=== PATIENT | female | born 1945 | race Caucasian/White ===

== ENCOUNTER 2016-03-26 03:01 | Inpatient (IN) | payer MEDICARE, OTHER ==
[2016-03-26] VITALS (7 sets, daily range): BP systolic 111–140; BP diastolic 33–61
[~2016-03-26] VITALS: Ht 165.1 cm; Wt 149.3 kg
[~2016-03-26 03:01] MED LIST: ALLO300T PO; AMIO200T2 PO; APIX5TAB PO; ASPI-482 PO; ASPI81TA9 PO; CARV12.52 PO; CARV25TA PO; FERR-26 PO; FURO80TA72 PO; GLIP5TAB10 PO; HYDR-2869 PO; INSU300I SQ; ISOS30TA4 PO; LEVO75TA5 PO; METO2.5T PO; NYST30PO9 TP; POTA10CA PO; SIMV10TA3 PO; SITA50TA PO; WARF2TAB7 PO; WARF3TAB7 PO
[2016-03-26 03:40] LABS: BASO % 0 % (0-3); EOS % 0 % (0-3); HEMATOCRIT 36.9 % (36.0-47.0); HEMOGLOBIN 12.2 g/dL (12.0-15.5); LYMPH # 0.5 x10^3/uL (1.0-4.8); LYMPH % 5 % (24-48); MEAN CORPUSCULAR HEMOGLOBIN 32 pg (25-35); MEAN CORPUSCULAR HGB CONC 33 g/dL (31-37); MEAN CORPUSCULAR VOLUME 96 fL (79-100); MONO % 11 % (0-9); NEUT % 84 % (31-73); PLATELET COUNT 116 x10^3/uL (140-400); RED BLOOD COUNT 3.86 x10^6/uL (3.50-5.40); RED CELL DISTRIBUTION WIDTH 14.8 % (11.5-14.5); WHITE BLOOD COUNT 9.4 x10^3/uL (4.0-11.0)
[2016-03-26 03:51] LABS: INR 1.9 (0.8-1.1); PROTHROMBIN TIME PATIENT 20.6 SEC (11.7-14.0)
[2016-03-26 03:54] LABS: CALCIUM 9.8 mg/dL (8.5-10.1); CREATININE 3.3 mg/dL (0.6-1.0); GFR 13.8; POTASSIUM 3.2 mmol/L (3.5-5.1)
[2016-03-26] MEDS ORDERED: ACETAMINOPHEN 325 MG TABLET. PO PRN (04:00)
[2016-03-26] MEDS ORDERED: IV NORMAL SALINE 1000ML BAG 1,000 ML IV ONE (04:00)
[2016-03-26] MEDS ORDERED: ONDANSETRON PF 4 MG/2 ML VIAL. IV PRN (04:00)
--- NOTE | 2016-03-26 04:03 | PHYS DOC ---
Past Medical History Past Medical History: A-Fib, CHF, Diabetes-Type II, Hypertension, Hypothyroid, Other Additional Past Medical Histor: CHRONIC KIDNEY FAILURE Past Surgical History: Cholecystectomy, Tonsillectomy, Other Additional Past Surgical Histo: D&C Alcohol Use: None Drug Use: None Adult General Chief Complaint Chief Complaint: WEAKNESS/GENERALIZED HPI HPI 71-year-old female states that for the last several days she's become profoundly weak. She states she now is unable to get up out of her chair and walk across the room. She states it's not because she short of breath but because she just feels so weak. She states she's had decreased urine output over the last several days. She denies any fever chills or sweats. She denies any chest pain shortness of breath dyspnea on exertion. She states she has had a urinary tract infection with Escherichia coli. [] Review of Systems Review of Systems Constitutional: Denies fever or chills [] Eyes: Denies change in visual acuity, redness, or eye pain [] HENT: Denies nasal congestion or sore throat [] Respiratory: Denies cough or shortness of breath [] Cardiovascular: No additional information not addressed in HPI [] GI: Denies abdominal pain, nausea, vomiting, bloody stools or diarrhea [] : Denies dysuria or hematuria [] Musculoskeletal: Denies back pain or joint pain [] Integument: Denies rash or skin lesions [] Neurologic: Denies headache, focal weakness or sensory changes [] Endocrine: Denies polyuria or polydipsia [] Current Medications Current Medications Current Medications Medications (Trade) Dose Ordered Sig/Dejon Start Time Stop Time Status Last Admin Dose Admin Acetaminophen (Tylenol) 650 mg PRN Q4HRS PRN 03/26/16 04:00 03/27/16 03:59 Levofloxacin/ Dextrose (LEVAQUIN 500mg PREMIX) 100 ml @ 100 mls/hr 1X ONCE 03/26/16 04:00 03/26/16 04:59 Ondansetron HCl 4 mg 4 mg PRN Q8HRS PRN 03/26/16 04:00 03/27/16 03:59 Sodium Chloride (Iv Sodium Chloride 0.9% 1000ml Bag) 1,000 ml @ 150 mls/hr Q6H40M 03/26/16 04:00 03/27/16 03:59 Allergies Allergies Allergies Coded Allergies Type Severity Reaction Last Updated Verified Penicillins Allergy Intermediate 02/06/16 Yes cephalexin Allergy Intermediate 02/06/16 Yes erythromycin base Allergy Intermediate Shortness of Air 02/09/16 Yes Physical Exam Physical Exam Constitutional: Disheveled, malodorous, dehydrated. [] HENT: Normocephalic, atraumatic, bilateral external ears normal, oropharynx moist, no oral exudates, nose normal. [] Eyes: PERRLA, EOMI, conjunctiva normal, no discharge. [] Neck: Normal range of motion, no tenderness, supple, no stridor. [] Cardiovascular:Heart rate regular rhythm, no murmur [] Lungs & Thorax: Bilateral breath sounds clear to auscultation [] Abdomen: Bowel sounds normal, soft, no tenderness, no masses, no pulsatile masses. [] Skin: Warm, dry, no erythema, no rash. [] Back: No tenderness, no CVA tenderness. [] Extremities: No tenderness, no cyanosis, no clubbing, ROM intact, no edema. [] Neurologic: Alert and oriented X 3, normal motor function, normal sensory function, no focal deficits noted. [] Psychologic: Affect normal, judgement normal, mood normal. [] Current Patient Data Vital Signs Vital Signs Date Time Temp Pulse Resp B/P Pulse Ox O2 Delivery O2 Flow Rate FiO2 03/26/16 03:07 100.8 78 23 132/63 93 Nasal Cannula 2 100.8 Lab Values Laboratory Tests Test 03/26/16 03:10 White Blood Count 9.4x10^3/uL (4.0-11.0) Red Blood Count 3.86x10^6/uL (3.50-5.40) Hemoglobin 12.2g/dL (12.0-15.5) Hematocrit 36.9% (36.0-47.0) Mean Corpuscular Volume 96fL (79-100) Mean Corpuscular Hemoglobin 32pg (25-35) Mean Corpuscular Hemoglobin Concent 33g/dL (31-37) Red Cell Distribution Width 14.8% (11.5-14.5) H Platelet Count 116x10^3/uL (140-400) L Neutrophils (%) (Auto) 84% (31-73) H Lymphocytes (%) (Auto) 5% (24-48) L Monocytes (%) (Auto) 11% (0-9) H Eosinophils (%) (Auto) 0% (0-3) Basophils (%) (Auto) 0% (0-3) Neutrophils # (Auto) 7.9x10^3uL (1.8-7.7) H Lymphocytes # (Auto) 0.5x10^3/uL (1.0-4.8) L Monocytes # (Auto) 1.0x10^3/uL (0.0-1.1) Eosinophils # (Auto) 0.0x10^3/uL (0.0-0.7) Basophils # (Auto) 0.0x10^3/uL (0.0-0.2) Platelet Estimate Pending Prothrombin Time 20.6SEC (11.7-14.0) H Prothrombin Time INR 1.9 (0.8-1.1) H Sodium Level 134mmol/L (136-145) L Potassium Level 3.2mmol/L (3.5-5.1) L Chloride Level 94mmol/L (98-107) L Carbon Dioxide Level 29mmol/L (21-32) Anion Gap 11 (6-14) Blood Urea Nitrogen 77mg/dL (7-20) H Creatinine 3.3mg/dL (0.6-1.0) H Estimated GFR (Cockcroft-Gault) 13.8 BUN/Creatinine Ratio 23 (6-20) H Glucose Level 288mg/dL (70-99) H Lactic Acid Level 1.3mmol/L (0.4-2.0) Calcium Level 9.8mg/dL (8.5-10.1) Total Bilirubin 0.9mg/dL (0.2-1.0) Aspartate Amino Transferase (AST) 45U/L (15-37) H Alanine Aminotransferase (ALT) 37U/L (14-59) Alkaline Phosphatase 133U/L (46-116) H Troponin I Quantitative 0.020ng/mL (0.000-0.055) CI-Awr-T-Type Natriuretic Peptide 1763pg/mL (0-124) H Total Protein 7.3g/dL (6.4-8.2) Albumin 3.0g/dL (3.4-5.0) L Albumin/Globulin Ratio 0.7 (1.0-1.7) L Laboratory Tests 03/26/16 03:10 Laboratory Tests 03/26/16 03:10 EKG EKG [EKG: Left bundle branch block rate of 76 no change from previous. Radiology/Procedures Radiology/Procedures [] Impressions: Chest x-ray: Negative exam as interpreted by me Course & Med Decision Making Course & Med Decision Making Pertinent Labs and Imaging studies reviewed. (See chart for details) [] Dragon Disclaimer Dragon Disclaimer This electronic medical record was generated, in whole or in part, using a voice recognition dictation system. Departure Departure Impression: Primary Impression: Urinary tract infection Additional Impressions: Renal failure (ARF), acute on chronic Generalized weakness Disposition: ADMITTED INPATIENT Admitting Physician: Vincenzo Lagos Condition: GUARDED Referrals: GREGORY HARMON (PCP) Problem Qualifiers Primary Impression: Urinary tract infection Urinary tract infection type: site unspecified Hematuria presence: without hematuria Qualified Code: N39.0 - Urinary tract infection, site not specified ANDREA RAYA DO Mar 26, 2016 04:03
[2016-03-26 04:08] LABS: ALBUMIN/GLOBULIN RATIO 0.7 (1.0-1.7); TOTAL BILIRUBIN 0.9 mg/dL (0.2-1.0); TOTAL PROTEIN 7.3 g/dL (6.4-8.2)
[2016-03-26] MEDS ORDERED: DEXTROSE 50% 25 GM / 50ML DISP.SYRIN. IV PRN ×2 (04:15→18:00)
[2016-03-26 04:32] LABS: BILIRUBIN,URINE NEGATIVE (NEG); GLUCOSE,URINE NEGATIVE (NEG); NITRITE,URINE POSITIVE (NEG); PH,URINE 5.5; PROTEIN,URINE 30 mg/dL (NEG-TRACE); UROBILINOGEN,URINE 0.2 mg/dL (0.2 mg/dL)
[2016-03-26] MEDS: IV NORMAL SALINE 1000ML BAG 1,000 ML IV SCH ×2 (04:34→10:40)
[2016-03-26 04:39] LABS: BACTERIA,URINE MANY /HPF (0-FEW); RBC,URINE TNTC /HPF (0-2); SQUAMOUS EPITHELIAL CELL,UR OCC /LPF; WBC,URINE 20-40 /HPF (0-4)
--- NOTE | 2016-03-26 06:20 | EKG ---
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
--- NOTE | 2016-03-26 07:08 | RAD ---
Portable chest, 03/26/2016: History: Shortness of breath Comparison is made to a study from 02/10/2016. The heart is at the upper limits of normal in size. The pulmonary vascularity is normal. No pulmonary infiltrates are seen. There is no evidence of pleural fluid. IMPRESSION: No acute cardiopulmonary abnormality is detected.
[2016-03-26 07:18] LABS: PLT ESTIMATE ADEQUATE (ADEQUATE)
[2016-03-26] MEDS: INSULIN ASPART 300 UNITS/3 ML INSULN.PEN SQ SCH ×3 (09:07→17:00)
--- NOTE | 2016-03-26 09:40 | PDOC2 ---
CARDIAC CONSULT DATE OF CONSULT Date of Consult DATE: 03/26/16 TIME: 09:26 REASON FOR CONSULT Reason for Consult: CHF REFERRING PHYSICIAN Referring Physician: Marlon SOURCE Source: Chart review, Patient HISTORY OF PRESENT ILLNESS HISTORY OF PRESENT ILLNESS This is a pleasant 71 yo female admitted mainly for complains of increasing weakness. She is known for recent pyelonephritis, CKD, and NSTEMI. She has been treated significantly with antibiotics and was recently off it over a week ago. This week she saw her PCP Shin and submitted a specimen which she said that she still have UTI. She has bee feeling weak, no fever or chills but she has been having left flank pain. She had some nausea and vomiting. Reports of decreased UOP. No symptoms of chest pain, SOA, palpitations. Denies any PND nor orthopnea symptoms. No significant peripheral edema. PAST MEDICAL HISTORY Past Medical History Cardiovascular: AFIB, CAD, CHF, HTN, Hyperlipidemia, Other (chronic lymphedema ; VSD) Pulmonary: Other (ERICKSON with CPAP) CENTRAL NERVOUS SYSTEM: Peripheral neuropathy GI: umbilical hernia, diverticulosis Heme/Onc: No pertinent hx Hepatobiliary: No pertinent hx Psych: Anxiety Musculoskeletal: low back pain, Osteoarthritis, morbid obesity, right leg cellulitis Rheumatologic: No pertinent hx Infectious disease: No pertinent hx ENT: No pertinent hx Renal/: Chronic renal insuff, UTI, pyelonephritis Endocrine: Diabetes (2), Hypothyroidism Dermatology: No pertinent hx PAST SURGICAL HISTORY Past Surgical History Appendectomy, Cholecystectomy, Tonsillectomy, Other ([id number]; D&C) FAMILY HISTORY Family History Coronary Artery Disease (father) SOCIAL HISTORY Social History Smoke: No ALCOHOL: none Lives: Alone Domestic Violence: Neg CURRENT MEDICATIONS CURRENT MEDICATIONS Current Medications Medications (Trade) Dose Ordered Sig/Dejon Route PRN Reason Start Time Stop Time Status Last Admin Dose Admin Sodium Chloride 1,000 ml @ 1,000 mls/hr 1X ONCE IV 03/26/16 04:00 03/26/16 04:59 DC 03/26/16 03:50 Levofloxacin/ Dextrose 100 ml @ 100 mls/hr 1X ONCE IV 03/26/16 04:00 03/26/16 04:59 DC 03/26/16 04:34 Sodium Chloride (Iv Sodium Chloride 0.9% 1000ml Bag) 1,000 ml @ 150 mls/hr Q6H40M IV 03/26/16 04:00 03/27/16 03:59 03/26/16 04:34 Insulin Aspart (Novolog) 0-7 UNITS TIDWMEALS SQ 03/26/16 08:00 03/26/16 09:07 ALLERGIES ALLERGIES: Coded Allergies: Penicillins (Verified Allergy, Intermediate, 02/06/16) cephalexin (Verified Allergy, Intermediate, 02/06/16) erythromycin base (Verified Allergy, Intermediate, Shortness of Air, 02/08) ROS Review of System 14 point ROS evaluated with pertinent positives noted per HPI PHYSICAL EXAM General: Alert, Oriented X3, Cooperative, No acute distress HEENT: Atraumatic, Mucous membr. moist/pink Lungs: Other (faint basilar crackles) Heart: Regular rate (SR LBBB), Normal S1, Normal S2, Other (S4; distant heart sounds due to body habitus; 2/6 sytolic murmur to LLS border) Abdomen: Soft, No tenderness Extremities: No cyanosis, Other (2+ bilateral pedal edema) Skin: No breakdown, No significant lesion Neuro: Normal speech, Sensation intact Psych/Mental Status: Mental status NL, Mood NL MUSCULOSKELETAL: Osteoarthritic changes both hands VITALS VITALS Vital Signs Date Time Temp Pulse Resp B/P Pulse Ox O2 Delivery O2 Flow Rate FiO2 03/26/16 07:00 99.1 65 20 112/37 94 Nasal Cannula 2.0 99.1 LABS Lab: Laboratory Tests Test 03/26/16 03:10 03/26/16 04:25 03/26/16 06:18 03/26/16 08:56 White Blood Count 9.4x10^3/uL (4.0-11.0) Red Blood Count 3.86x10^6/uL (3.50-5.40) Hemoglobin 12.2g/dL (12.0-15.5) Hematocrit 36.9% (36.0-47.0) Mean Corpuscular Volume 96fL (79-100) Mean Corpuscular Hemoglobin 32pg (25-35) Mean Corpuscular Hemoglobin Concent 33g/dL (31-37) Red Cell Distribution Width 14.8% (11.5-14.5) Platelet Count 116x10^3/uL (140-400) Neutrophils (%) (Auto) 84% (31-73) Lymphocytes (%) (Auto) 5% (24-48) Monocytes (%) (Auto) 11% (0-9) Eosinophils (%) (Auto) 0% (0-3) Basophils (%) (Auto) 0% (0-3) Neutrophils # (Auto) 7.9x10^3uL (1.8-7.7) Lymphocytes # (Auto) 0.5x10^3/uL (1.0-4.8) Monocytes # (Auto) 1.0x10^3/uL (0.0-1.1) Eosinophils # (Auto) 0.0x10^3/uL (0.0-0.7) Basophils # (Auto) 0.0x10^3/uL (0.0-0.2) Segmented Neutrophils % 82% (35-66) Band Neutrophils % 10% (0-9) Lymphocytes % 5% (24-48) Monocytes % 3% (0-10) Platelet Estimate Adequate (ADEQUATE) Prothrombin Time 20.6SEC (11.7-14.0) Prothromb Time International Ratio 1.9 (0.8-1.1) Sodium Level 134mmol/L (136-145) Potassium Level 3.2mmol/L (3.5-5.1) Chloride Level 94mmol/L (98-107) Carbon Dioxide Level 29mmol/L (21-32) Anion Gap 11 (6-14) Blood Urea Nitrogen 77mg/dL (7-20) Creatinine 3.3mg/dL (0.6-1.0) Estimated GFR (Cockcroft-Gault) 13.8 BUN/Creatinine Ratio 23 (6-20) Glucose Level 288mg/dL (70-99) Lactic Acid Level 1.3mmol/L (0.4-2.0) 1.0mmol/L (0.4-2.0) Calcium Level 9.8mg/dL (8.5-10.1) Total Bilirubin 0.9mg/dL (0.2-1.0) Aspartate Amino Transf (AST/SGOT) 45U/L (15-37) Alanine Aminotransferase (ALT/SGPT) 37U/L (14-59) Alkaline Phosphatase 133U/L (46-116) Troponin I Quantitative 0.020ng/mL (0.000-0.055) OT-Ble-S-Type Natriuretic Peptide 1763pg/mL (0-124) Total Protein 7.3g/dL (6.4-8.2) Albumin 3.0g/dL (3.4-5.0) Albumin/Globulin Ratio 0.7 (1.0-1.7) Urine Collection Type Unknown Urine Color Yellow Urine Clarity Turbid Urine pH 5.5 Urine Specific [place] 1.010 Urine Protein 30mg/dL (NEG-TRACE) Urine Glucose (UA) Negativemg/dL (NEG) Urine Ketones (Stick) Negativemg/dL (NEG) Urine Blood Large (NEG) Urine Nitrite Positive (NEG) Urine Bilirubin Negative (NEG) Urine Urobilinogen Dipstick 0.2mg/dL (0.2 mg/dL) Urine Leukocyte Esterase Moderate (NEG) Urine RBC Tntc/HPF (0-2) Urine WBC 20-40/HPF (0-4) Urine Squamous Epithelial Cells Occ/LPF Urine Amorphous Sediment Present/HPF Urine Bacteria Many/HPF (0-FEW) Glucose (Fingerstick) 276mg/dL (70-99) ECHOCARDIOGRAM ECHOCARDIOGRAM <Conclusion> The Left Ventricle is mildly dilated. Left ventricle ejection fraction is severely impaired. The Ejection Fraction is <20%. There is no significant aortic valvular stenosis. Doppler and Color Flow revealed no significant aortic regurgitation. Doppler and Color Flow revealed mild mitral regurgitation. Doppler and Color Flow revealed mild tricuspid regurgitation. The PA pressure was estimated at 40 mmHg. DATE: 02/05/16 1820 STRESS TEST STRESS TEST Conclusion 1. Non diagnostic EKG due to baseline LBBB 2. Fixed apical/inferior defect, likely artifact versus small prior infarct. No ischemia 3. Low risk study 4. Normal EF at > 60% DATE: 03/11/16 1349 ASSESSMENT/PLAN ASSESSMENT/PLAN 1. Persistent UTI: likely inducing weakness. Recent Pyelonephritis. Per PCP 2. 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 IVF ongoing. Nephrology following 3. Chronic diastolic/ systolic CHF: No vascular congestion, borderline pro NT BNP at 1700 age adjusted. Clinically compensated. Replace K. 4. Hx of NSTEMI: unable to proceed with LHC at that time with renal function significantly decreased and MPI performed instead as an outpt noted with good EF and fixed apical/inferior defect with prior infarct. No reversible defects were noted. 5. PAFIB: Remains SR, no significant ectopies overnight. 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 Continue with amiodarone and eliquis. 6. Cardiomyopathy: Combined ischemic/nonischemic. Lowest EF in the past at <20% on 02/05/2016. MPI on 03/11/2016 noted with EF>60%. Lifevest was in place for SCD prevention and remains on it prior to hospitalization and has been compliant. Per device use review, limited data, suspect 2 possibilities, failed download or device may not be on. no noted rhythm abnormalities otherwise for registered data. Will verify EF with TTE today and if remains significantly improved then will consider discontinuation of lifevest. Continue with optimization. Defer start of lasix to nephrology. 7. CAD: [facility] 09/19/2007 noted with VSD, mod LV dysfunction with EF of 40%, mild to mod diffuse LV hypokinesis and with nonobstructive minimal CAD at [facility]. CP free. Continue with secondary prevention. 8. HTN: controlled, continue with home regimen 9. HLP: statin 10. DM2: Consider changing home januvia to tradjenta. Defer to PCP Problems: NICHOLAS RICHARDS APRN Mar 26, 2016 09:40
[2016-03-26] MEDS ORDERED: POTASSIUM CHLORIDE 20 MEQ TABLET.ER. PO ONE (09:45)
--- NOTE | 2016-03-26 10:25 | ACF ---
Admission Forms Criteria URINARY COMPLICATIONS Clinical Indications for Inpatient Care (Place 'X' for any and all applicable criteria): Ongoing inpatient care may be indicated for urinary complications with ANY ONE of the following: [X]I. Urinary tract infection requiring inpatient care as indicated by ANY ONE of the following(8)(19)(20): [ ]a) Severe symptoms (eg, high fever, severe pain) [ ]b) Vomiting or dehydration requiring ongoing inpatient care [X]c) IV antibiotic needs that cannot be managed at lower level of care [ ]d) Hemodynamic instability [ ]e) Obstruction of collecting system by stone or tumor [ ]II. Urinary retention requiring drainage or surgery (3)(4)(5)(17)(18) [ ]III. Renal failure (Use Renal Failure Criteria for further information.) [ ]IV. Oliguria(30) [ ]V. Post obstructive diuresis requiring close monitoring of urine output and intravenous compensation for excessive fluid losses(33) Extended stay beyond goal length of stay for primary condition may be needed until ALL of the following are present(3)(4)(5)(8): [ ]a) Renal function (creatinine) at baseline, or daily decreases in creatinine consistent with renal function return [ ]b) Voiding adequately or with urinary catheter or percutaneous suprapubic tube and management regimen in place that is performable at lower level of care. [ ]c) Urine output adequate [ ]d) Fever absent or resolving [ ]e) Infection absent or treatable at next level of care The original [employer] content created by [employer] has been revised. The portions of the content which have been revised are identified through the use of italic text or in bold, and [employer] has neither reviewed nor approved the modified material. All other unmodified content is copyright [facility] Please see references footnoted in the original [facility] edition 2016 Admission Criteria Met?: Yes MARIAH URBAN Mar 26, 2016 10:25
[2016-03-26] MEDS ORDERED: MAGNESIUM SULFATE 2GM 50 ML IV PRN (11:15)
--- NOTE | 2016-03-26 11:19 | PDOC2 ---
CONSULT Date of Consult Date of Consult DATE: 03/26/16 TIME: 11:12 Reason for Consult Reason for Consult: ZELDA/ CKD IV Referring Physician Referring Physician: Dr Lagos Identification/Chief Complaint Chief Complaint Weakness Problems: Source Source: Chart review, Patient History of Present Illness Reason for Visit: as dictated Past Medical History Cardiovascular: AFIB, CAD, CHF, HTN, Hyperlipidemia, Other Pulmonary: Other CENTRAL NERVOUS SYSTEM: Periperal neuropathy GI: No pertinent hx Heme/Onc: No pertinent hx Hepatobiliary: No pertinent hx Psych: Anxiety Musculoskeletal: low back pain Rheumatologic: No pertinent hx Infectious disease: No pertinent hx Renal/: Chronic renal insuff, UTI Endocrine: Diabetes, Hypothyroidism Past Surgical History Past Surgical History: Appendectomy, Cholecystectomy, Tonsillectomy, Other Family History Family History: Coronary Artery Disease Social History ALCOHOL: none Lives: Alone Domestic Violence: Neg Current Problem List Problem List Problems Medical Problems: (1) Generalized weakness Status: Acute (2) Renal failure (ARF), acute on chronic Status: Acute (3) Urinary tract infection Status: Acute Current Medications Current Medications Current Medications Sodium Chloride 1,000 ml @ 1,000 mls/hr 1X ONCE IV Last administered on 03:50; Start 03/26/16 at 04:00; Stop 03/26/16 at 04:59; Status DC Levofloxacin/ Dextrose (LEVAQUIN 500mg PREMIX) 100 ml @ 100 mls/hr 1X ONCE IV Last administered on 03/26/16 04:34; Start 03/26/16 at 04:00; Stop 03/26/16 at 04:59; Status DC Ondansetron HCl 4 mg 4 mg PRN Q8HRS PRN IV NAUSEA/VOMITING; Start 03/26/16 at 04 :00; Stop 03/27/16 at 03:59 Sodium Chloride (Iv Sodium Chloride 0.9% 1000ml Bag) 1,000 ml @ 150 mls/hr Q6H40M IV Last administered on 03/26/16 04:34; Start 03/26/16 at 04:00; Stop 03/27/16 at 03:59 Acetaminophen (Tylenol) 650 mg PRN Q4HRS PRN PO FEVER; Start 03/26/16 at 04:00; Stop 03/27/16 at 03:59 Insulin Aspart (Novolog) 0-7 UNITS TIDWMEALS SQ Last administered on 03/26/16t 09:07; Start 03/26/16 at 08:00 Dextrose 12.5 gm PRN Q15MIN PRN IV SEE COMMENTS; Start 03/26/16 at 04:15 Potassium Chloride (Klor-Con) 40 meq 1X ONCE PO ; Start 03/26/16 at 09:45; Stop 03/26/16 at 09:46; Status DC Active Scripts Active Carvedilol 12.5 Mg Tablet 12.5 Mg PO BIDWMEALS Eliquis (Apixaban) 5 Mg Tablet 5 Mg PO BID Reported Potassium Chloride 10 Meq Capsule.er 10 Meq PO DAILY Januvia (Sitagliptin Phosphate) 50 Mg Tablet 1 Tab PO DAILY Nystatin 15 Gm Powder 10,000 Flower TP BID Aspir 81 (Aspirin) 81 Mg Tablet.dr 1 Tab PO DAILY Glipizide 5 Mg Tablet 1 Tab PO BID Allopurinol 300 Mg Tablet 1 Tab PO DAILY Amiodarone Hcl 200 Mg Tablet 1 Tab PO DAILY Levothyroxine Sodium 75 Mcg Tablet 1 Tab PO DAILY Simvastatin 10 Mg Tablet 10 Mg PO DAILY Metolazone 2.5 Mg Tablet 2.5 Mg PO DAILY Isosorbide Mononitrate Er (Isosorbide Mononitrate) 30 Mg Tab.er.24h 50 Mg PO DAILY Ferrous Sulfate 325 Mg Tablet 1 Tab PO DAILY Hydralazine Hcl 50 Mg Tablet 1 Tab PO TID Lasix (Furosemide) 80 Mg Tablet 1 Tab PO DAILY Allergies Allergies: Coded Allergies: Penicillins (Verified Allergy, Intermediate, 02/06/16) cephalexin (Verified Allergy, Intermediate, 02/06/16) erythromycin base (Verified Allergy, Intermediate, Shortness of Air, 02/08) ROS Review of System GEN: + Fevers + Chills + Weakness EYES: no Visual Complaints ENT: nno EN Drainage no Hearing deficiets CVS: no Orthopnea no CP RESP: no SOB no ROCHA GI: + Nausea + Vomiting : 1 x Dysuria + Urgency HEME: no easy bruising no Palp Ly Nodes NEURO mp Focal Weakness mp Sz PSYCH: mp Suicidal Ideation + baseliene Depression SKIN: no new Rashes ENDO: no Polyuria or Polydipsia no Hot/Cold Intolerance MU SK: + Arthraigia no Myalgia Physical Exam Physical Exam General Appearance: Awake Alert Oriented x 3 In no Distress Eyes: VIsion Unchanged Conjunctiva Normal EN: No EN Drainage Mucous Memb. moist Neck: no JVD no JVP Supple no Thyromegaly; Short thick neck CVS: S1 S2 no audible Murmur No Gallop No Rub no pitting Edema (+ Pre-Tibial fat) - distal HS Resp: no Rales no Rhonchi no Acc. Muscle use; Distal BS GI: BAS +ve NO Bruit Non Tender Non Distended : min CVA tenderness; ? Suprapubic Tenderness SKIN: no Rashes Breast Exam deferred Mu.Sk: Adequate ROM no Muscle Atrophy Heme: Unable to palpate Obvious LAD no Splenomegaly NEURO: Good Strength and Tone Cranial Nerves II - XII grossly intact Psych: min Depressed no Active hallucination Vital Signs Vital Signs Date Time Temp Pulse Resp B/P Pulse Ox O2 Delivery O2 Flow Rate FiO2 03/26/16 10:52 98.8 60 20 119/55 95 Nasal Cannula 2.0 98.8 Assessment & Plan ARF: (? ATN/ AIN/ Pyelonephritis) vs VMN due to diuretics - watch for improvement with IVF. Current FLuid and E-lyte status does not necessitate emergent need for Dialysis. Will re-evaluate for Dialysis in am CKD IV at baseline - Creat of ~ 2.5 on last check; Previous CT Scan in 01/2016 shows some atrophy of Kidneys and thinning. DESMOND cannot be ruled out Vol dpeeltioin - IVf for now ? UTI with Hematruia - await Cx from PCP and from here.- Abx per ER and Dr Lagos; No stones were noted to my eye on previous Ct (none reported) Recc Pyelo - may need URO eval as OP. HTN: Current BP meds reviewed. See orders for changes. HypoALbuminemia - wtach trend. suspec low A/G ratio due to ch infection. Low K - replace per sliding scale Discussed Plan of Care and prognosis etc. at length with pt Labs Labs Laboratory Tests Test 03/26/16 03:10 03/26/16 04:25 03/26/16 06:18 03/26/16 08:56 White Blood Count 9.4x10^3/uL (4.0-11.0) Red Blood Count 3.86x10^6/uL (3.50-5.40) Hemoglobin 12.2g/dL (12.0-15.5) Hematocrit 36.9% (36.0-47.0) Mean Corpuscular Volume 96fL (79-100) Mean Corpuscular Hemoglobin 32pg (25-35) Mean Corpuscular Hemoglobin Concent 33g/dL (31-37) Red Cell Distribution Width 14.8% (11.5-14.5) Platelet Count 116x10^3/uL (140-400) Neutrophils (%) (Auto) 84% (31-73) Lymphocytes (%) (Auto) 5% (24-48) Monocytes (%) (Auto) 11% (0-9) Eosinophils (%) (Auto) 0% (0-3) Basophils (%) (Auto) 0% (0-3) Neutrophils # (Auto) 7.9x10^3uL (1.8-7.7) Lymphocytes # (Auto) 0.5x10^3/uL (1.0-4.8) Monocytes # (Auto) 1.0x10^3/uL (0.0-1.1) Eosinophils # (Auto) 0.0x10^3/uL (0.0-0.7) Basophils # (Auto) 0.0x10^3/uL (0.0-0.2) Segmented Neutrophils % 82% (35-66) Band Neutrophils % 10% (0-9) Lymphocytes % 5% (24-48) Monocytes % 3% (0-10) Platelet Estimate Adequate (ADEQUATE) Prothrombin Time 20.6SEC (11.7-14.0) Prothromb Time International Ratio 1.9 (0.8-1.1) Sodium Level 134mmol/L (136-145) Potassium Level 3.2mmol/L (3.5-5.1) Chloride Level 94mmol/L (98-107) Carbon Dioxide Level 29mmol/L (21-32) Anion Gap 11 (6-14) Blood Urea Nitrogen 77mg/dL (7-20) Creatinine 3.3mg/dL (0.6-1.0) Estimated GFR (Cockcroft-Gault) 13.8 BUN/Creatinine Ratio 23 (6-20) Glucose Level 288mg/dL (70-99) Lactic Acid Level 1.3mmol/L (0.4-2.0) 1.0mmol/L (0.4-2.0) Calcium Level 9.8mg/dL (8.5-10.1) Magnesium Level 2.0mg/dL (1.8-2.4) Total Bilirubin 0.9mg/dL (0.2-1.0) Aspartate Amino Transf (AST/SGOT) 45U/L (15-37) Alanine Aminotransferase (ALT/SGPT) 37U/L (14-59) Alkaline Phosphatase 133U/L (46-116) Troponin I Quantitative 0.020ng/mL (0.000-0.055) PE-Uov-U-Type Natriuretic Peptide 1763pg/mL (0-124) Total Protein 7.3g/dL (6.4-8.2) Albumin 3.0g/dL (3.4-5.0) Albumin/Globulin Ratio 0.7 (1.0-1.7) Urine Collection Type Unknown Urine Color Yellow Urine Clarity Turbid Urine pH 5.5 Urine Specific Overton 1.010 Urine Protein 30mg/dL (NEG-TRACE) Urine Glucose (UA) Negativemg/dL (NEG) Urine Ketones (Stick) Negativemg/dL (NEG) Urine Blood Large (NEG) Urine Nitrite Positive (NEG) Urine Bilirubin Negative (NEG) Urine Urobilinogen Dipstick 0.2mg/dL (0.2 mg/dL) Urine Leukocyte Esterase Moderate (NEG) Urine RBC Tntc/HPF (0-2) Urine WBC 20-40/HPF (0-4) Urine Squamous Epithelial Cells Occ/LPF Urine Amorphous Sediment Present/HPF Urine Bacteria Many/HPF (0-FEW) Glucose (Fingerstick) 276mg/dL (70-99) Test 03/26/16 09:55 Troponin I Quantitative < 0.017ng/mL (0.000-0.055) Laboratory Tests Test 03/26/16 03:10 03/26/16 04:25 03/26/16 06:18 03/26/16 08:56 White Blood Count 9.4x10^3/uL (4.0-11.0) Red Blood Count 3.86x10^6/uL (3.50-5.40) Hemoglobin 12.2g/dL (12.0-15.5) Hematocrit 36.9% (36.0-47.0) Mean Corpuscular Volume 96fL (79-100) Mean Corpuscular Hemoglobin 32pg (25-35) Mean Corpuscular Hemoglobin Concent 33g/dL (31-37) Red Cell Distribution Width 14.8% (11.5-14.5) Platelet Count 116x10^3/uL (140-400) Neutrophils (%) (Auto) 84% (31-73) Lymphocytes (%) (Auto) 5% (24-48) Monocytes (%) (Auto) 11% (0-9) Eosinophils (%) (Auto) 0% (0-3) Basophils (%) (Auto) 0% (0-3) Neutrophils # (Auto) 7.9x10^3uL (1.8-7.7) Lymphocytes # (Auto) 0.5x10^3/uL (1.0-4.8) Monocytes # (Auto) 1.0x10^3/uL (0.0-1.1) Eosinophils # (Auto) 0.0x10^3/uL (0.0-0.7) Basophils # (Auto) 0.0x10^3/uL (0.0-0.2) Segmented Neutrophils % 82% (35-66) Band Neutrophils % 10% (0-9) Lymphocytes % 5% (24-48) Monocytes % 3% (0-10) Platelet Estimate Adequate (ADEQUATE) Prothrombin Time 20.6SEC (11.7-14.0) Prothromb Time International Ratio 1.9 (0.8-1.1) Sodium Level 134mmol/L (136-145) Potassium Level 3.2mmol/L (3.5-5.1) Chloride Level 94mmol/L (98-107) Carbon Dioxide Level 29mmol/L (21-32) Anion Gap 11 (6-14) Blood Urea Nitrogen 77mg/dL (7-20) Creatinine 3.3mg/dL (0.6-1.0) Estimated GFR (Cockcroft-Gault) 13.8 BUN/Creatinine Ratio 23 (6-20) Glucose Level 288mg/dL (70-99) Lactic Acid Level 1.3mmol/L (0.4-2.0) 1.0mmol/L (0.4-2.0) Calcium Level 9.8mg/dL (8.5-10.1) Magnesium Level 2.0mg/dL (1.8-2.4) Total Bilirubin 0.9mg/dL (0.2-1.0) Aspartate Amino Transf (AST/SGOT) 45U/L (15-37) Alanine Aminotransferase (ALT/SGPT) 37U/L (14-59) Alkaline Phosphatase 133U/L (46-116) Troponin I Quantitative 0.020ng/mL (0.000-0.055) PO-Ahl-K-Type Natriuretic Peptide 1763pg/mL (0-124) Total Protein 7.3g/dL (6.4-8.2) Albumin 3.0g/dL (3.4-5.0) Albumin/Globulin Ratio 0.7 (1.0-1.7) Urine Collection Type Unknown Urine Color Yellow Urine Clarity Turbid Urine pH 5.5 Urine Specific Overton 1.010 Urine Protein 30mg/dL (NEG-TRACE) Urine Glucose (UA) Negativemg/dL (NEG) Urine Ketones (Stick) Negativemg/dL (NEG) Urine Blood Large (NEG) Urine Nitrite Positive (NEG) Urine Bilirubin Negative (NEG) Urine Urobilinogen Dipstick 0.2mg/dL (0.2 mg/dL) Urine Leukocyte Esterase Moderate (NEG) Urine RBC Tntc/HPF (0-2) Urine WBC 20-40/HPF (0-4) Urine Squamous Epithelial Cells Occ/LPF Urine Amorphous Sediment Present/HPF Urine Bacteria Many/HPF (0-FEW) Glucose (Fingerstick) 276mg/dL (70-99) Test 03/26/16 09:55 Troponin I Quantitative < 0.017ng/mL (0.000-0.055) Images Images Portable chest, 03/26/2016: History: Shortness of breath Comparison is made to a study from 02/10/2016. The heart is at the upper limits of normal in size. The pulmonary vascularity is normal. No pulmonary infiltrates are seen. There is no evidence of pleural fluid. IMPRESSION: No acute cardiopulmonary abnormality is detected. KARAN BARAJAS MD Mar 26, 2016 11:19
[2016-03-26] MEDS ORDERED: HYDRALAZINE 25 MG TABLET PO SCH (14:00)
[2016-03-26] MEDS: ASPIRIN ENTERIC COATED 81 MG TABLET.DR. PO SCH (14:49)
[2016-03-26] MEDS: POTASSIUM CHLORIDE 20 MEQ TABLET.ER. PO PRN (14:49)
[2016-03-26] MEDS: APIXABAN 5 MG TABLET. PO SCH ×2 (14:49→20:45)
[2016-03-26] MEDS: ISOSORBIDE MONONITRATE ER 30 MG TAB.ER.24H PO SCH (14:50)
[2016-03-26] MEDS: AMIODARONE HCL 200 MG TABLET PO SCH (14:51)
[2016-03-26] MEDS ORDERED: METOLAZONE 2.5 MG TABLET PO SCH (15:00)
[2016-03-26] MEDS ORDERED: FUROSEMIDE 80 MG TABLET PO SCH (15:15)
[2016-03-26] MEDS ORDERED: CARVEDILOL 12.5 MG TABLET PO SCH (17:00)
[2016-03-26] MEDS: ALLOPURINOL 300 MG TABLET. PO SCH (17:06)
[2016-03-26] MEDS: FERROUS SULFATE 325 MG TABLET PO SCH (17:06)
[2016-03-26] MEDS: CARVEDILOL 12.5 MG TABLET PO SCH (17:07)
[2016-03-26] MEDS: GLIPIZIDE 5 MG TABLET PO SCH (17:07)
[2016-03-26] MEDS: POTASSIUM CHLORIDE 10 MEQ TABLET.ER. PO SCH (17:09)
--- NOTE | 2016-03-26 17:37 | CARD ---
APPROVED REPORT EXAM: Two-dimensional and M-mode echocardiogram with Doppler and color Doppler. Other Information Quality : GoodHR: 60bpm Rhythm : NSR INDICATION Cardiomyopathy RISK FACTORS Obesity 2D DIMENSIONS RVDd3.3 (2.9-3.5cm)Left Atrium(2D)3.8 (1.6-4.0cm) IVSd1.1 (0.7-1.1cm)Aortic Root(2D)2.9 (2.0-3.7cm) LVDd5.9 (3.9-5.9cm)LVOT Diameter2.4 (1.8-2.4cm) PWd1.0 (0.7-1.1cm)LVDs4.3 (2.5-4.0cm) FS (%) 28.0 %SV93.7 ml LVEF(%)53.4 (>50%) Aortic Valve AoV Peak Moody.172.2cm/sAoV VTI45.0cm AO Peak GR.11.9mmHgLVOT Peak Moody.97.8cm/s AO Mean GR.8mmHgAVA (VMAX)2.65cm2 Mitral Valve MV E Rcivxbcp95.3cm/sMV E Peak Gr.7mmHg MV DECEL [id number] A Blkhakbp121.2cm/s MV E Mean Gr.2mmHgE/A Ratio0.4 MV A [id number] Pulmonary Valve PV Peak Lwlrvdle233.6cm/s Pulmonary Vein S1 Kcgnkgqj64.7cm/sD2 Ruzdrolq67.1cm/s PVa [id number] LEFT VENTRICLE The Left Ventricle is mildly dilated. There is mild concentric left ventricular hypertrophy. The left ventricular systolic function is normal and the ejection fraction is within normal range. The Ejecti on Fraction is 50-55%. There is normal LV segmental wall motion. Transmitral Doppler flow pattern is Grade I-abnormal relaxation pattern. RIGHT VENTRICLE The right ventricle is normal size. There is normal right ventricular wall thickness. The right ventr icular systolic function is normal. ATRIA The left atrium is mildly dilated. The right atrium size is normal. The interatrial septum is intact with no evidence for an atrial septal defect or patent foramen ovale as noted on 2-D or Doppler imagi ng. AORTIC VALVE The aortic valve is mildly thickened. Doppler and Color Flow revealed no significant aortic regurgita tion. There is no significant aortic valvular stenosis. MITRAL VALVE There is no evidence of mitral valve prolapse. There is no mitral valve stenosis. Doppler and Color F low revealed mild mitral regurgitation. TRICUSPID VALVE The tricuspid valve is normal in structure and function. Doppler and Color Flow revealed no tricuspid valve regurgitation noted. PULMONIC VALVE Doppler and Color Flow revealed trace to mild pulmonic valvular regurgitation. There is no pulmonic v alvular stenosis. GREAT VESSELS The aortic root is normal in size. The ascending aorta is normal in size. The pulmonary artery is nor mal. The IVC is normal in size and collapses >50% with inspiration. PERICARDIAL EFFUSION There is no evidence of significant pericardial effusion. Critical Notification Critical Value: No <Conclusion> The left ventricular systolic function is normal and the ejection fraction is within normal range. The Ejection Fraction is 50-55%. There is mild concentric left ventricular hypertrophy. There is no significant aortic valvular stenosis. Doppler and Color Flow revealed no significant aortic regurgitation. Doppler and Color Flow revealed mild mitral regurgitation. Doppler and Color Flow revealed no tricuspid valve regurgitation noted. Doppler and Color Flow revealed trace to mild pulmonic valvular regurgitation.
[2016-03-26] MEDS: NYSTATIN TOPICAL POWDER 15GM BOTTLE. TP SCH ×2 (19:16→20:45)
[2016-03-26] MEDS: HYDRALAZINE 50 MG TABLET PO SCH (20:45)
[2016-03-26] MEDS: SIMVASTATIN 10 MG TABLET PO SCH (20:45)
[2016-03-26] MEDS ORDERED: APIXABAN 5 MG TABLET. PO SCH (21:00)
--- NOTE | 2016-03-26 23:14 | HP ---
ADMIT DATE: 03/26/2016 CHIEF COMPLAINT: Generalized weakness. HISTORY OF PRESENT ILLNESS: The patient is a 71-year-old woman who actually had been admitted just a month ago with UTI and ZELDA who presented to the Emergency Room for worsening generalized weakness. She was getting to a point where she was literally unable to get out of the chair and walk across the room. She denies any shortness of breath associated with this. Denies any fevers or chills, any chest pain, abdominal pain. She denies any dysuria or diarrhea. However, she has noted that she had decreased urine output over the past few days. In the Emergency Room, she was found with BUN and creatinine of 77 and 3.3 with her typical baseline being 2.5, as well as electrolyte derangements and elevated BNP at 1763. UA showed 20-40 wbc and bacteria. She was therefore admitted with recurrent UTI as well as ZELDA. PAST MEDICAL HISTORY: CKD for recurrent UTI, CAD, CHF (diastolic), atrial fibrillation, hypertension, peripheral neuropathy, chronic lymphedema, diabetes mellitus, hypothyroidism. PAST SURGICAL HISTORY: Cholecystectomy, appendectomy, tonsillectomy, history of D and C. FAMILY HISTORY: Positive for hypertension, CAD in father. SOCIAL HISTORY: Lives by herself. No toxic habits. ALLERGIES: PENICILLINS, CEPHALOSPORINS, ERYTHROMYCIN. MEDICATIONS: MAR reconciled with home medications. REVIEW OF SYSTEMS: Essentially positive as per HPI. Denies any other symptoms in rest of organ system review. PHYSICAL EXAMINATION: VITAL SIGNS: Show a blood pressure of 119/55, heart rate of 60, respiratory rate at 20. She is afebrile, satting 95% on 2 liters. GENERAL: This is a morbidly obese woman, alert and oriented, in no acute distress. HEENT: Shows no scleral icterus. NECK: Short and thick. LUNGS: Fairly clear bilaterally. CARDIOVASCULAR: Regular rate and rhythm. 5/6 VSD murmur. ABDOMEN: Obese, positive bowel sounds, organs could not be palpated. EXTREMITIES: Show 1+ edema bilateral lower extremities. SKIN: Warm, soft and dry without any rash. LABORATORY DATA: CBC from today shows a WBC of 9.4, hemoglobin 12.2, platelets of 116. Of note, prior admissions show platelet counts in the 120s to 130s range. Chemistries with a BUN and creatinine of 77 and 3.3, sodium 134, potassium 3.2, chloride at 94. LFTs with an AST of 45, alkaline phosphatase at 133, albumin at 3.0. ProBNP at 1753. Initial troponin at 0.02, repeated less than 0.017. Of note, glucoses at 288 and 246. Urine with 20-40 wbc, TNTC rbc, many bacteria, nitrite positive. IMAGING: Chest x-ray in the Emergency Room without acute cardiopulmonary abnormality seen. ASSESSMENT AND PLAN: The patient is a 71-year-old woman with multiple medical issues who presents once again with urinary tract infection and acute kidney injury. She recently had been treated for urinary tract infection with what cultures showed to be E. coli pansensitive. She had received trimethoprim sulfamethoxazole for 7 days, which she had completed just last week. We will admit her here. Start her on ceftriaxone. Culture is pending. Suspect this is the same infection once again. For her qazcw-dx-sqtqtpb kidney injury, I will gently rehydrate, monitoring electrolytes and creatinine. Renal consult has been obtained. BNP is somewhat elevated, but without any signs or symptoms of respiratory insufficiency, doubt that this is representing acute congestive heart failure exacerbation, more likely related to renal insufficiency. Hypokalemia and hyponatremia will be repeated IV and p.o. as indicated. We will continue to monitor. Her diabetes mellitus initially was poorly controlled. We will add insulin sliding scale to her home regimen. She currently has no symptoms of coronary artery disease or congestive heart failure. We will continue all her home medications as well. She is on apixaban for atrial fibrillation. Medication will be continued as well. There is no overt sign of bleeding at this time. JOSE MORELAND MD DR: KODY/sherri JOB#: [id number] / [id number] GREGORY Mayes MD
[2016-03-27] VITALS (7 sets, daily range): BP systolic 109–149; BP diastolic 46–74
[2016-03-27 06:32] LABS: ALBUMIN 2.3 g/dL (3.4-5.0); CREATININE 3.1 mg/dL (0.6-1.0); GFR 14.9; PHOSPHORUS 3.2 mg/dL (2.6-4.7); POTASSIUM 3.6 mmol/L (3.5-5.1)
[2016-03-27] MEDS: LEVOTHYROXINE 75 MCG TABLET PO SCH (06:39)
--- NOTE | 2016-03-27 06:43 | CONS ---
DATE OF CONSULTATION: 03/26/2016 HISTORY OF PRESENT ILLNESS: The patient is a morbidly obese 71-year-old female who was admitted here in January with possible pyelonephritis. She was discharged home and about a few days ago she had developed urgency, frequency and possible dysuria was treated with antibiotics. She had another culture done with her primary care physician recently and was again noted to have UTI, so Cipro was ordered. She went to flower buncher or picker the Cipro at the pharmacy, by the time she got home and climbed the stairs she was feeling too weak to do much. She was hence admitted to the hospital. She has had fevers, chills, nausea, vomiting, and some back pain. It appears that she has a recurrence of pyelonephritis. She is now on levofloxacin. Choice of antibiotics will be deferred to Dr. Lagos. Cultures from the patient's primary care physician are pending at this time. Baseline creatinine runs about 2.5. She is now noted to be up to 3.3 and hence has been diagnosed with acute renal failure. Sugars are slightly on the high side to radiate. I do not see any obvious emergent need for dialysis at this time of dictation. KARAN BARAJAS MD DR: ANGELI/sherri JOB#: [id number] / [id number]
[2016-03-27] MEDS: GLIPIZIDE 5 MG TABLET PO SCH ×2 (07:47→16:03)
[2016-03-27] MEDS: ASPIRIN ENTERIC COATED 81 MG TABLET.DR. PO SCH (07:48)
[2016-03-27] MEDS: LINAGLIPTIN 5 MG TABLET PO SCH ×2 (07:48→07:54)
[2016-03-27] MEDS: FERROUS SULFATE 325 MG TABLET PO SCH (07:48)
[2016-03-27] MEDS: POTASSIUM CHLORIDE 10 MEQ TABLET.ER. PO SCH (07:48)
[2016-03-27] MEDS: APIXABAN 5 MG TABLET. PO SCH ×2 (07:49→21:02)
[2016-03-27] MEDS: ALLOPURINOL 300 MG TABLET. PO SCH (07:49)
[2016-03-27] MEDS: ISOSORBIDE MONONITRATE ER 30 MG TAB.ER.24H PO SCH (07:51)
[2016-03-27] MEDS: HYDRALAZINE 50 MG TABLET PO SCH ×3 (07:52→21:03)
[2016-03-27] MEDS: AMIODARONE HCL 200 MG TABLET PO SCH (07:52)
[2016-03-27] MEDS: CARVEDILOL 12.5 MG TABLET PO SCH ×2 (07:53→16:03)
[2016-03-27] MEDS: NYSTATIN TOPICAL POWDER 15GM BOTTLE. TP SCH ×2 (07:54→21:03)
[2016-03-27] MEDS: INSULIN ASPART 300 UNITS/3 ML INSULN.PEN SQ SCH ×3 (08:00→16:57)
--- NOTE | 2016-03-27 08:54 | PDOC ---
PROGRESS NOTES Chief Complaint Chief Complaint Sepsis UTI ASSESSMENT AND PLAN: 1. Sepsis: febrile. Blood cult with [facility]. on Levaquin 2. UTI: awaiting cult and sens, but had E.coli infect a couple of weeks ago, rx.ed with bactrim at home. 3. ZELDA: improving with hydration 4. CKD3-4: creat at baseline about 2.5 5. Anemia: 2/2 CKD. on oral iron. no indication for EPO (yet) 5. Hyponatremia: resolved 6. Hypokalemia: resolved 7. DM: improved control. continue curernt regimen, monitor frrquently 8. CAD: no acute issues. cont home meds 9. CHF: chronic diastolic/systolic: (historical EF 20, but on03/11 EF 60). monitor fluid status 10: Afib: good rate control. cont current meds 11. OAC: on apixaban for atrial fibrillation. 12. Hypothyroidism: on synthroid 13. Protein malnutrition: moderate in face of massive obesity Vitals Vitals Vital Signs Date Time Temp Pulse Resp B/P Pulse Ox O2 Delivery O2 Flow Rate FiO2 03/27/16 07:53 58 149/54 03/27/16 07:45 97.0 18 97 Room Air 97.0 03/26/16 20:00 2.0 Physical Exam General: Alert, Oriented X3, Cooperative, No acute distress Heart: Regular rate, Other Lungs: Clear Abdomen: Normal bowel sounds, Soft, No tenderness, Other (massively obese) Extremities: No clubbing, No cyanosis, Other (2+ bilateral pedal edema) Skin: No significant lesion Labs LABS Laboratory Tests Test 03/26/16 08:56 03/26/16 09:55 03/26/16 12:02 03/26/16 15:50 Glucose (Fingerstick) 276mg/dL (70-99) 188mg/dL (70-99) Potassium Level 2.8mmol/L (3.5-5.1) Troponin I Quantitative < 0.017ng/mL (0.000-0.055) < 0.017ng/mL (0.000-0.055) Test 03/26/16 16:00 03/26/16 17:16 03/26/16 22:06 03/27/16 05:40 Potassium Level 3.2mmol/L (3.5-5.1) 3.6mmol/L (3.5-5.1) Glucose (Fingerstick) 138mg/dL (70-99) 194mg/dL (70-99) Hemoglobin 9.9g/dL (12.0-15.5) Sodium Level 139mmol/L (136-145) Chloride Level 103mmol/L (98-107) Carbon Dioxide Level 28mmol/L (21-32) Anion Gap 8 (6-14) Blood Urea Nitrogen 78mg/dL (7-20) Creatinine 3.1mg/dL (0.6-1.0) Estimated GFR (Cockcroft-Gault) 14.9 Glucose Level 73mg/dL (70-99) Calcium Level 9.0mg/dL (8.5-10.1) Phosphorus Level 3.2mg/dL (2.6-4.7) Magnesium Level 2.0mg/dL (1.8-2.4) Albumin 2.3g/dL (3.4-5.0) Thyroid Stimulating Hormone (TSH) 1.571uIU/mL (0.358-3.74) Test 03/27/16 08:12 Glucose (Fingerstick) 81mg/dL (70-99) Review of Systems Review of Systems still feels weak, not much change. no focal sx JOSE MORELAND MD Mar 27, 2016 08:54
[2016-03-27] MEDS ORDERED: ASPIRIN ENTERIC COATED 81 MG TABLET.DR. PO SCH (09:00)
[2016-03-27] MEDS ORDERED: SIMVASTATIN 10 MG TABLET PO SCH (09:00)
[2016-03-27] MEDS ORDERED: AMIODARONE HCL 200 MG TABLET PO SCH (09:00)
[2016-03-27] MEDS ORDERED: ISOSORBIDE MONONITRATE ER 30 MG TAB.ER.24H PO SCH (09:00)
--- NOTE | 2016-03-27 11:19 | PDOC ---
PROGRESS NOTES Subjective Subjective The patient is feeling slightly better today. Objective Objective Vital Signs Date Time Temp Pulse Resp B/P Pulse Ox O2 Delivery O2 Flow Rate FiO2 03/27/16 08:00 Nasal Cannula 2.0 03/27/16 07:53 58 149/54 03/27/16 07:45 97.0 18 97 97.0 Intake and Output 03/27/16 07:00 Intake Total 1545 ml Output Total 850 ml Balance 695 ml Intake Oral 1545 ml Output Urine Total 850 ml Physical Exam Abdomen: Normal bowel sounds Heart: Regular rate General: mild distress Lungs: Clear to auscultation Assessment Assessment Problems Medical Problems: (1) Generalized weakness Status: Acute (2) Renal failure (ARF), acute on chronic Status: Acute (3) Renal failure, acute Status: Acute (4) Urinary tract infection Status: Acute (5) UTI symptoms Status: Acute ASSESSMENT/PLAN 1. Persistent UTI: likely inducing weakness. Recent Pyelonephritis. Per PCP 2. 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 IVF ongoing. Nephrology following 3. Chronic diastolic/ systolic CHF: No vascular congestion, borderline pro NT BNP at 1700 age adjusted. Clinically compensated. Replace K. 4. Hx of NSTEMI: unable to proceed with [facility] at that time with renal function significantly decreased and MPI performed instead as an outpt noted with good EF and fixed apical/inferior defect with prior infarct. No reversible defects were noted. 5. PAFIB: Remains SR, no significant ectopies overnight. 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 Continue with amiodarone and eliquis. 6. Cardiomyopathy: Combined ischemic/nonischemic. Lowest EF in the past at <20% on 02/05/2016. MPI on 03/11/2016 noted with EF>60%. Repeat echocardiogram confirms good LV systolic function. We'll continue medical treatment. We may discontinue the patient's LifeVest. This was discussed with the patient. 7. CAD: [facility] 09/19/2007 noted with VSD, mod LV dysfunction with EF of 40%, mild to mod diffuse LV hypokinesis and with nonobstructive minimal CAD at [facility]. CP free. Continue with secondary prevention. 8. HTN: controlled, continue with home regimen 9. HLP: statin Comment Review of Relevant I have reviewed the following items daniel (where applicable) has been applied. Labs Laboratory Tests Test 03/26/16 03:10 03/26/16 04:25 03/26/16 06:18 03/26/16 08:56 White Blood Count 9.4x10^3/uL (4.0-11.0) Red Blood Count 3.86x10^6/uL (3.50-5.40) Hemoglobin 12.2g/dL (12.0-15.5) Hematocrit 36.9% (36.0-47.0) Mean Corpuscular Volume 96fL (79-100) Mean Corpuscular Hemoglobin 32pg (25-35) Mean Corpuscular Hemoglobin Concent 33g/dL (31-37) Red Cell Distribution Width 14.8% (11.5-14.5) Platelet Count 116x10^3/uL (140-400) Neutrophils (%) (Auto) 84% (31-73) Lymphocytes (%) (Auto) 5% (24-48) Monocytes (%) (Auto) 11% (0-9) Eosinophils (%) (Auto) 0% (0-3) Basophils (%) (Auto) 0% (0-3) Neutrophils # (Auto) 7.9x10^3uL (1.8-7.7) Lymphocytes # (Auto) 0.5x10^3/uL (1.0-4.8) Monocytes # (Auto) 1.0x10^3/uL (0.0-1.1) Eosinophils # (Auto) 0.0x10^3/uL (0.0-0.7) Basophils # (Auto) 0.0x10^3/uL (0.0-0.2) Segmented Neutrophils % 82% (35-66) Band Neutrophils % 10% (0-9) Lymphocytes % 5% (24-48) Monocytes % 3% (0-10) Platelet Estimate Adequate (ADEQUATE) Prothrombin Time 20.6SEC (11.7-14.0) Prothromb Time International Ratio 1.9 (0.8-1.1) Sodium Level 134mmol/L (136-145) Potassium Level 3.2mmol/L (3.5-5.1) Chloride Level 94mmol/L (98-107) Carbon Dioxide Level 29mmol/L (21-32) Anion Gap 11 (6-14) Blood Urea Nitrogen 77mg/dL (7-20) Creatinine 3.3mg/dL (0.6-1.0) Estimated GFR (Cockcroft-Gault) 13.8 BUN/Creatinine Ratio 23 (6-20) Glucose Level 288mg/dL (70-99) Lactic Acid Level 1.3mmol/L (0.4-2.0) 1.0mmol/L (0.4-2.0) Calcium Level 9.8mg/dL (8.5-10.1) Magnesium Level 2.0mg/dL (1.8-2.4) Total Bilirubin 0.9mg/dL (0.2-1.0) Aspartate Amino Transf (AST/SGOT) 45U/L (15-37) Alanine Aminotransferase (ALT/SGPT) 37U/L (14-59) Alkaline Phosphatase 133U/L (46-116) Troponin I Quantitative 0.020ng/mL (0.000-0.055) QY-Dfh-[id number]-Type Natriuretic Peptide 1763pg/mL (0-124) Total Protein 7.3g/dL (6.4-8.2) Albumin 3.0g/dL (3.4-5.0) Albumin/Globulin Ratio 0.7 (1.0-1.7) Urine Collection Type Unknown Urine Color Yellow Urine Clarity Turbid Urine pH 5.5 Urine Specific Earp 1.010 Urine Protein 30mg/dL (NEG-TRACE) Urine Glucose (UA) Negativemg/dL (NEG) Urine Ketones (Stick) Negativemg/dL (NEG) Urine Blood Large (NEG) Urine Nitrite Positive (NEG) Urine Bilirubin Negative (NEG) Urine Urobilinogen Dipstick 0.2mg/dL (0.2 mg/dL) Urine Leukocyte Esterase Moderate (NEG) Urine RBC Tntc/HPF (0-2) Urine WBC 20-40/HPF (0-4) Urine Squamous Epithelial Cells Occ/LPF Urine Amorphous Sediment Present/HPF Urine Bacteria Many/HPF (0-FEW) Glucose (Fingerstick) 276mg/dL (70-99) Test 03/26/16 09:55 03/26/16 12:02 03/26/16 15:50 03/26/16 16:00 Potassium Level 2.8mmol/L (3.5-5.1) 3.2mmol/L (3.5-5.1) Troponin I Quantitative < 0.017ng/mL (0.000-0.055) < 0.017ng/mL (0.000-0.055) Glucose (Fingerstick) 188mg/dL (70-99) Test 03/26/16 17:16 03/26/16 22:06 03/27/16 05:40 03/27/16 08:12 Glucose (Fingerstick) 138mg/dL (70-99) 194mg/dL (70-99) 81mg/dL (70-99) Hemoglobin 9.9g/dL (12.0-15.5) Sodium Level 139mmol/L (136-145) Potassium Level 3.6mmol/L (3.5-5.1) Chloride Level 103mmol/L (98-107) Carbon Dioxide Level 28mmol/L (21-32) Anion Gap 8 (6-14) Blood Urea Nitrogen 78mg/dL (7-20) Creatinine 3.1mg/dL (0.6-1.0) Estimated GFR (Cockcroft-Gault) 14.9 Glucose Level 73mg/dL (70-99) Calcium Level 9.0mg/dL (8.5-10.1) Phosphorus Level 3.2mg/dL (2.6-4.7) Magnesium Level 2.0mg/dL (1.8-2.4) Albumin 2.3g/dL (3.4-5.0) Thyroid Stimulating Hormone (TSH) 1.571uIU/mL (0.358-3.74) Laboratory Tests Test 03/26/16 12:02 03/26/16 15:50 03/26/16 16:00 03/26/16 17:16 Glucose (Fingerstick) 188mg/dL (70-99) 138mg/dL (70-99) Troponin I Quantitative < 0.017ng/mL (0.000-0.055) Potassium Level 3.2mmol/L (3.5-5.1) Test 03/26/16 22:06 03/27/16 05:40 03/27/16 08:12 Glucose (Fingerstick) 194mg/dL (70-99) 81mg/dL (70-99) Hemoglobin 9.9g/dL (12.0-15.5) Sodium Level 139mmol/L (136-145) Potassium Level 3.6mmol/L (3.5-5.1) Chloride Level 103mmol/L (98-107) Carbon Dioxide Level 28mmol/L (21-32) Anion Gap 8 (6-14) Blood Urea Nitrogen 78mg/dL (7-20) Creatinine 3.1mg/dL (0.6-1.0) Estimated GFR (Cockcroft-Gault) 14.9 Glucose Level 73mg/dL (70-99) Calcium Level 9.0mg/dL (8.5-10.1) Phosphorus Level 3.2mg/dL (2.6-4.7) Magnesium Level 2.0mg/dL (1.8-2.4) Albumin 2.3g/dL (3.4-5.0) Thyroid Stimulating Hormone (TSH) 1.571uIU/mL (0.358-3.74) Microbiology 03/26/16 Blood Culture - Final, Complete Medications Current Medications Sodium Chloride 1,000 ml @ 1,000 mls/hr 1X ONCE IV Last administered on 03:50; Start 03/26/16 at 04:00; Stop 03/26/16 at 04:59; Status DC Levofloxacin/ Dextrose (LEVAQUIN 500mg PREMIX) 100 ml @ 100 mls/hr 1X ONCE IV Last administered on 03/26/16 04:34; Start 03/26/16 at 04:00; Stop 03/26/16 at 04:59; Status DC Ondansetron HCl 4 mg 4 mg PRN Q8HRS PRN IV NAUSEA/VOMITING; Start 03/26/16 at 04 :00; Stop 03/27/16 at 03:59; Status DC Sodium Chloride (Iv Sodium Chloride 0.9% 1000ml Bag) 1,000 ml @ 150 mls/hr Q6H40M IV Last administered on 03/26/16 04:34; Start 03/26/16 at 04:00; Stop 03/26/16 at 16:47; Status DC Acetaminophen (Tylenol) 650 mg PRN Q4HRS PRN PO FEVER; Start 03/26/16 at 04:00; Stop 03/27/16 at 03:59; Status DC Insulin Aspart (Novolog) 0-7 UNITS TIDWMEALS SQ Last administered on 03/26/16 12:20; Start 03/26/16 at 08:00; Stop 03/26/16 at 18:05; Status DC Dextrose 12.5 gm PRN Q15MIN PRN IV SEE COMMENTS; Start 03/26/16 at 04:15; Stop 03/26/16 at 18:05; Status DC Potassium Chloride 40 meq 40 meq 1X ONCE PO Last administered on 03/26/16 12: 18; Start 03/26/16 at 09:45; Stop 03/26/16 at 09:46; Status DC Magnesium Sulfate/ Dextrose (Magnesium Sulfate PREMIX 2GM) 50 ml @ 25 mls/hr PRN DAILY PRN IV for Mag < 1.7 on am labs; Start 03/26/16 at 11:15 Potassium Chloride (Klor-Con) 40 meq PRN Q6HRS PRN PO form K < 3.8 Last administered on 03/26/16 14:49; Start 03/26/16 at 11:15 Amiodarone HCl (Cordarone) 200 mg DAILY PO Last administered on 03/27/16 07:52 ; Start 03/26/16 at 13:00 Apixaban (Eliquis) 5 mg BID PO Last administered on 03/27/16 07:49; Start at 13:00 Carvedilol (Coreg) 12.5 mg BIDWMEALS PO Last administered on 03/27/16 07:53; Start 03/26/16 at 17:00 Aspirin (Ecotrin) 81 mg DAILYWBKFT PO Last administered on 03/27/16 07:48; Start 03/26/16 at 13:00 Simvastatin (Zocor) 10 mg QHS PO Last administered on 03/26/16 20:45; Start 03/26/16 at 21:00 Isosorbide Mononitrate (Imdur) 30 mg DAILY PO Last administered on 03/27/16 07: 51; Start 03/26/16 at 13:00 Hydralazine HCl (Apresoline) 25 mg TID PO Last administered on 03/26/16 14:50; Start 03/26/16 at 14:00; Stop 03/26/16 at 15:09; Status DC Allopurinol (Zyloprim) 100 mg DAILY PO Last administered on 03/27/16 07:49; Start 03/26/16 at 15:00 Amiodarone HCl (Cordarone) 200 mg DAILY PO ; Start 03/27/16 at 09:00; Status UNV Apixaban (Eliquis) 5 mg BID PO ; Start 03/26/16 at 21:00; Status UNV Aspirin (Ecotrin) 81 mg DAILY PO ; Start 03/27/16 at 09:00; Status UNV Carvedilol (Coreg) 12.5 mg BIDWMEALS PO ; Start 03/26/16 at 17:00; Status UNV Ferrous Sulfate (Feosol) 325 mg DAILY PO Last administered on 03/27/16 07:48; Start 03/26/16 at 17:00 Furosemide (Lasix) 80 mg DAILY PO ; Start 03/26/16 at 15:15; Stop 03/26/16 at 16: 47; Status DC Glipizide (Glucotrol) 5 mg BIDAC PO Last administered on 03/27/16 07:47; Start 03/26/16 at 16:30 Hydralazine HCl (Apresoline) 50 mg TID PO Last administered on 03/27/16 07:52; Start 03/26/16 at 21:00 Isosorbide Mononitrate (Imdur) 50 mg DAILY PO ; Start 03/27/16 at 09:00; Status UNV Levothyroxine Sodium (Synthroid) 75 mcg DAILY07 PO Last administered on 06:39; Start 03/27/16 at 07:00 Metolazone (Zaroxolyn) 2.5 mg DAILY PO ; Start 03/26/16 at 15:00; Stop 03/26/16 at 16:47; Status DC Nystatin (Nystop) 1 flower BID TP Last administered on 03/27/16 07:54; Start at 16:00 Simvastatin (Zocor) 10 mg DAILY PO ; Start 03/27/16 at 09:00; Status UNV Potassium Chloride (Klor-Con) 10 meq DAILYWBKFT PO Last administered on 07:48; Start 03/26/16 at 17:00 Linagliptin (Tradjenta) 5 mg DAILY PO Last administered on 03/27/16 07:54; Start 03/27/16 at 07:32 Info (Anti-Coagulation Monitoring By Pharmacy) 1 each PRN DAILY PRN MC SEE COMMENTS; Start 03/26/16 at 18:00 Insulin Aspart (Novolog) 0-7 UNITS TIDWMEALS SQ ; Start 03/27/16 at 08:00 Dextrose 12.5 gm 12.5 gm PRN Q15MIN PRN IV SEE COMMENTS; Start 03/26/16 at 18:00 Levofloxacin/ Dextrose 150 ml @ 100 mls/hr Q24H IV ; Start 03/26/16 at 18:15; Status UNV Levofloxacin/ Dextrose (LEVAQUIN 250mg PREMIX) 50 ml @ 50 mls/hr Q24H IV Last administered on 03/27/16 06:39; Start 03/27/16 at 06:00 Active Scripts Active Carvedilol 12.5 Mg Tablet 12.5 Mg PO BIDWMEALS Eliquis (Apixaban) 5 Mg Tablet 5 Mg PO BID Reported Potassium Chloride 10 Meq Capsule.er 10 Meq PO DAILY Januvia (Sitagliptin Phosphate) 50 Mg Tablet 1 Tab PO DAILY Nystatin 15 Gm Powder 10,000 Flower TP BID Aspir 81 (Aspirin) 81 Mg Tablet.dr 1 Tab PO DAILY Glipizide 5 Mg Tablet 1 Tab PO BID Allopurinol 300 Mg Tablet 1 Tab PO DAILY Amiodarone Hcl 200 Mg Tablet 1 Tab PO DAILY Levothyroxine Sodium 75 Mcg Tablet 1 Tab PO DAILY Simvastatin 10 Mg Tablet 10 Mg PO DAILY Metolazone 2.5 Mg Tablet 2.5 Mg PO DAILY Isosorbide Mononitrate Er (Isosorbide Mononitrate) 30 Mg Tab.er.24h 50 Mg PO DAILY Ferrous Sulfate 325 Mg Tablet 1 Tab PO DAILY Hydralazine Hcl 50 Mg Tablet 1 Tab PO TID Lasix (Furosemide) 80 Mg Tablet 1 Tab PO DAILY Vitals/I & O Vital Sign - Last 24 Hours 03/26/16 03/26/16 03/26/16 03/26/16 14:50 14:50 14:51 15:00 Temp 98.8 98.8 Pulse 68 60 60 65 Resp 20 B/P 120/50 119/55 119/55 118/51 Pulse Ox 97 O2 Delivery Nasal Cannula O2 Flow Rate 2.0 03/26/16 03/26/16 03/26/16 03/26/16 17:07 19:35 20:00 20:45 Temp 98.1 98.1 Pulse 68 64 64 Resp 20 B/P 140/33 140/33 Pulse Ox 97 O2 Delivery Nasal Cannula Nasal Cannula O2 Flow Rate 2.0 2.0 03/26/16 03/27/16 03/27/16 03/27/16 23:41 03:45 07:45 07:51 Temp 100.9 100.9 97.0 100.9 100.9 97.0 Pulse 63 60 58 58 Resp 20 18 18 B/P 133/61 147/51 149/54 149/54 Pulse Ox 97 98 97 O2 Delivery Room Air Room Air Room Air 03/27/16 03/27/16 03/27/16 03/27/16 07:52 07:52 07:53 08:00 Pulse 58 58 58 B/P 149/54 149/54 149/54 O2 Delivery Nasal Cannula O2 Flow Rate 2.0 Intake and Output 03/26/16 03/26/16 03/27/16 15:00 23:00 07:00 Intake Total 395 ml 350 ml 800 ml Output Total 850 ml Balance 395 ml -500 ml 800 ml ANSHUL FERNANDEZ MD Mar 27, 2016 11:19
--- NOTE | 2016-03-27 13:38 | PDOC ---
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 moist Neck: no JVD no JVP Supple no Thyromegaly; Short thick neck CVS: S1 S2 no audible Murmur No Gallop No Rub no pitting Edema (+ Pre-Tibial fat) - distal HS Resp: no Rales no Rhonchi no Acc. Muscle use; Distal BS GI: BAS +ve NO Bruit Non Tender Non Distended : min CVA tenderness; ? Suprapubic Tenderness Assessment & Plan ARF: (? ATN/ AIN/ Pyelonephritis) vs VMN due to diuretics - min improvement with IVF. Current FLuid and E-lyte status does not necessitate emergent need for Dialysis. Will re-evaluate for Dialysis in am CKD IV at baseline - Creat of ~ 2.5 on last check; Previous CT Scan in 01/2016 shows some atrophy of Kidneys and thinning. DESMOND cannot be ruled out Vol dpeeltioin - IVf for now ? UTI with Hematruia - await Cx from PCP and from here.- Abx per ER and Dr Lagos; No stones were noted to my eye on previous Ct (none reported) Recc Pyelo - may need URO eval . HTN: Current BP meds reviewed. See orders for changes. HypoALbuminemia - watch trend. suspect low A/G ratio due to ch infection. Low K - replaced per sliding scale Discussed Plan of Care and prognosis etc. at length with pt COMMENT/RELEVANT DATA Meds Current Medications Medications (Trade) Dose Ordered Sig/Dejon Start Time Stop Time Status Last Admin Dose Admin Acetaminophen (Tylenol) 650 mg PRN Q4HRS PRN 03/26/16 04:00 03/27/16 03:59 DC Allopurinol (Zyloprim) 100 mg DAILY 03/26/16 15:00 03/27/16 07:49 100 MG Amiodarone HCl (Cordarone) 200 mg DAILY 03/27/16 09:00 UNV Apixaban (Eliquis) 5 mg BID 03/26/16 21:00 UNV Aspirin (Ecotrin) 81 mg DAILY 03/27/16 09:00 UNV Carvedilol (Coreg) 12.5 mg BIDWMEALS 03/26/16 17:00 UNV Dextrose 12.5 gm PRN Q15MIN PRN 03/26/16 04:15 03/26/16 18:05 DC Dextrose 12.5 gm 12.5 gm PRN Q15MIN PRN 03/26/16 18:00 Ferrous Sulfate (Feosol) 325 mg DAILY 03/26/16 17:00 03/27/16 07:48 325 MG Furosemide (Lasix) 80 mg DAILY 03/26/16 15:15 03/26/16 16:47 DC Glipizide (Glucotrol) 5 mg BIDAC 03/26/16 16:30 03/27/16 07:47 5 MG Hydralazine HCl (Apresoline) 50 mg TID 03/26/16 21:00 03/27/16 07:52 50 MG Info (Anti-Coagulation Monitoring By Pharmacy) 1 each PRN DAILY PRN 03/26/16 18:00 Insulin Aspart (Novolog) 0-7 UNITS TIDWMEALS 03/27/16 08:00 Isosorbide Mononitrate (Imdur) 50 mg DAILY 03/27/16 09:00 UNV Levofloxacin/ Dextrose (LEVAQUIN 250mg PREMIX) 50 ml @ 50 mls/hr Q24H 03/27/16 06:00 03/27/16 06:39 50 MLS/HR Levofloxacin/ Dextrose (LEVAQUIN 500mg PREMIX) 100 ml @ 100 mls/hr 1X ONCE 03/26/16 04:00 03/26/16 04:59 DC 03/26/16 04:34 100 MLS/HR Levothyroxine Sodium (Synthroid) 75 mcg DAILY07 03/27/16 07:00 03/27/16 06:39 75 MCG Linagliptin (Tradjenta) 5 mg DAILY 03/27/16 07:32 03/27/16 07:54 5 MG Magnesium Sulfate/ Dextrose (Magnesium Sulfate PREMIX 2GM) 50 ml @ 25 mls/hr PRN DAILY PRN 03/26/16 11:15 Metolazone (Zaroxolyn) 2.5 mg DAILY 03/26/16 15:00 03/26/16 16:47 DC Nystatin (Nystop) 1 flavia BID 03/26/16 16:00 03/27/16 07:54 1 FLAVIA Ondansetron HCl 4 mg 4 mg PRN Q8HRS PRN 03/26/16 04:00 03/27/16 03:59 DC Potassium Chloride 40 meq 40 meq 1X ONCE 03/26/16 09:45 03/26/16 09:46 DC 03/26/16 12:18 40 MEQ Potassium Chloride (Klor-Con) 10 meq DAILYWBKFT 03/26/16 17:00 03/27/16 07:48 10 MEQ Simvastatin (Zocor) 10 mg DAILY 03/27/16 09:00 UNV Sodium Chloride (Iv Sodium Chloride 0.9% 1000ml Bag) 1,000 ml @ 150 mls/hr Q6H40M 03/26/16 04:00 03/26/16 16:47 DC 03/26/16 04:34 150 MLS/HR Lab Laboratory Tests Test 03/26/16 15:50 03/26/16 16:00 03/26/16 17:16 03/26/16 22:06 Troponin I Quantitative < 0.017ng/mL (0.000-0.055) Potassium Level 3.2mmol/L (3.5-5.1) Glucose (Fingerstick) 138mg/dL (70-99) 194mg/dL (70-99) Test 03/27/16 05:40 03/27/16 08:12 03/27/16 11:55 03/27/16 12:03 Hemoglobin 9.9g/dL (12.0-15.5) Sodium Level 139mmol/L (136-145) Potassium Level 3.6mmol/L (3.5-5.1) 3.6mmol/L (3.5-5.1) Chloride Level 103mmol/L (98-107) Carbon Dioxide Level 28mmol/L (21-32) Anion Gap 8 (6-14) Blood Urea Nitrogen 78mg/dL (7-20) Creatinine 3.1mg/dL (0.6-1.0) Estimated GFR (Cockcroft-Gault) 14.9 Glucose Level 73mg/dL (70-99) Calcium Level 9.0mg/dL (8.5-10.1) Phosphorus Level 3.2mg/dL (2.6-4.7) Magnesium Level 2.0mg/dL (1.8-2.4) Albumin 2.3g/dL (3.4-5.0) Thyroid Stimulating Hormone (TSH) 1.571uIU/mL (0.358-3.74) Glucose (Fingerstick) 81mg/dL (70-99) 133mg/dL (70-99) KARAN BARAJAS MD Mar 27, 2016 13:37
[2016-03-27] MEDS: SIMVASTATIN 10 MG TABLET PO SCH (21:02)
[2016-03-28] VITALS (7 sets, daily range): BP systolic 120–150; BP diastolic 46–88
[2016-03-28] MEDS: LEVOTHYROXINE 75 MCG TABLET PO SCH (06:35)
[2016-03-28 06:38] LABS: ALBUMIN 2.4 g/dL (3.4-5.0); CALCIUM 8.9 mg/dL (8.5-10.1); CREATININE 3.3 mg/dL (0.6-1.0); GFR 13.8; PHOSPHORUS 3.3 mg/dL (2.6-4.7); POTASSIUM 3.6 mmol/L (3.5-5.1)
[2016-03-28] MEDS: INSULIN ASPART 300 UNITS/3 ML INSULN.PEN SQ SCH ×3 (08:00→17:35)
[2016-03-28] MEDS: ALLOPURINOL 100 MG TABLET. PO SCH (08:11)
[2016-03-28] MEDS: POTASSIUM CHLORIDE 10 MEQ TABLET.ER. PO SCH (08:11)
[2016-03-28] MEDS: FERROUS SULFATE 325 MG TABLET PO SCH (08:11)
[2016-03-28] MEDS: APIXABAN 5 MG TABLET. PO SCH ×2 (08:11→21:23)
[2016-03-28] MEDS: LINAGLIPTIN 5 MG TABLET PO SCH (08:12)
[2016-03-28] MEDS: ASPIRIN ENTERIC COATED 81 MG TABLET.DR. PO SCH (08:12)
[2016-03-28] MEDS: GLIPIZIDE 5 MG TABLET PO SCH ×2 (08:12→16:01)
[2016-03-28] MEDS: HYDRALAZINE 50 MG TABLET PO SCH ×3 (08:13→21:22)
[2016-03-28] MEDS: AMIODARONE HCL 200 MG TABLET PO SCH (08:13)
[2016-03-28] MEDS: ISOSORBIDE MONONITRATE ER 30 MG TAB.ER.24H PO SCH (08:14)
[2016-03-28] MEDS: CARVEDILOL 12.5 MG TABLET PO SCH ×2 (08:15→16:02)
[2016-03-28] MEDS: NYSTATIN TOPICAL POWDER 15GM BOTTLE. TP SCH ×2 (08:16→21:23)
--- NOTE | 2016-03-28 11:38 | PDOC ---
SUBJECTIVE ROS ZELDA/ CKD IV doing and feeling OK overall CVS: no Orthopnea, no CP RESP: no SOB, no ROCHA GI: no Nausea, no Vomiting : no Dysuria, no Urgency OBJECTIVE Vital Signs Vital Signs Date Time Temp Pulse Resp B/P Pulse Ox O2 Delivery O2 Flow Rate FiO2 03/28/16 08:15 62 149/62 03/28/16 07:46 98.1 18 97 Nasal Cannula 2.0 98.1 I & 0 Intake and Output 03/28/16 07:00 Intake Total 800 ml Output Total 1000 ml Balance -200 ml Intake Oral 750 ml IV Total 50 ml Output Urine Total 1000 ml # Bowel Movements 1 PHYSICAL EXAM Physical Exam General Appearance: Awake Alert Oriented x 3 In no Distress Eyes: VIsion Unchanged Conjunctiva Normal EN: No EN Drainage Mucous Memb. moist Neck: no JVD no JVP Supple no Thyromegaly; Short thick neck CVS: S1 S2 no audible Murmur No Gallop No Rub no pitting Edema (+ Pre-Tibial fat) - distal HS Resp: no Rales no Rhonchi no Acc. Muscle use; Distal BS GI: BAS +ve NO Bruit Non Tender Non Distended : min CVA tenderness; ? Suprapubic Tenderness Assessment & Plan ARF: (? ATN/ AIN/ Pyelonephritis) vs VMN due to diuretics - min improvement with IVF. Current FLuid and E-lyte status does not necessitate emergent need for Dialysis. Will re-evaluate for Dialysis in am CKD IV at baseline - Creat of ~ 2.5 on last check; Previous CT Scan in 01/2016 shows some atrophy of Kidneys and thinning. DESMOND cannot be ruled out Vol depletion - appears to have resolved ? UTI with Hematuria - await Cx (GNR) from here.- Abx per ER and Dr Lagos; No stones were noted to my eye on previous Ct (none reported) Recc Pyelo - may need URO eval . HTN: Current BP meds reviewed. See orders for changes. HypoALbuminemia - watch trend. suspect low A/G ratio due to ch infection. Low K - replaced per sliding scale and now WNL Discussed Plan of Care and prognosis etc. at length with pt COMMENT/RELEVANT DATA Meds Current Medications Medications (Trade) Dose Ordered Sig/Dejon Start Time Stop Time Status Last Admin Dose Admin Acetaminophen (Tylenol) 650 mg PRN Q4HRS PRN 03/26/16 04:00 03/27/16 03:59 DC Allopurinol (Zyloprim) 100 mg DAILY 03/28/16 09:00 03/28/16 08:11 100 MG Amiodarone HCl (Cordarone) 200 mg DAILY 03/27/16 09:00 UNV Apixaban (Eliquis) 5 mg BID 03/26/16 21:00 UNV Aspirin (Ecotrin) 81 mg DAILY 03/27/16 09:00 UNV Carvedilol (Coreg) 12.5 mg BIDWMEALS 03/26/16 17:00 UNV Dextrose 12.5 gm PRN Q15MIN PRN 03/26/16 04:15 03/26/16 18:05 DC Dextrose 12.5 gm 12.5 gm PRN Q15MIN PRN 03/26/16 18:00 Ferrous Sulfate (Feosol) 325 mg DAILY 03/26/16 17:00 03/28/16 08:11 325 MG Furosemide (Lasix) 80 mg DAILY 03/26/16 15:15 03/26/16 16:47 DC Glipizide (Glucotrol) 5 mg BIDAC 03/26/16 16:30 03/28/16 08:12 5 MG Hydralazine HCl (Apresoline) 50 mg TID 03/26/16 21:00 03/28/16 08:13 50 MG Info (Anti-Coagulation Monitoring By Pharmacy) 1 each PRN DAILY PRN 03/26/16 18:00 Insulin Aspart (Novolog) 0-7 UNITS TIDWMEALS 03/27/16 08:00 03/27/16 16:57 4 UNITS Isosorbide Mononitrate (Imdur) 50 mg DAILY 03/27/16 09:00 UNV Levofloxacin/ Dextrose (LEVAQUIN 250mg PREMIX) 50 ml @ 50 mls/hr Q24H 03/27/16 06:00 03/28/16 05:41 50 MLS/HR Levofloxacin/ Dextrose (LEVAQUIN 500mg PREMIX) 100 ml @ 100 mls/hr 1X ONCE 03/26/16 04:00 03/26/16 04:59 DC 03/26/16 04:34 100 MLS/HR Levothyroxine Sodium (Synthroid) 75 mcg DAILY07 03/27/16 07:00 03/28/16 06:35 75 MCG Linagliptin (Tradjenta) 5 mg DAILY 03/27/16 07:32 03/28/16 08:12 5 MG Magnesium Sulfate/ Dextrose (Magnesium Sulfate PREMIX 2GM) 50 ml @ 25 mls/hr PRN DAILY PRN 03/26/16 11:15 Metolazone (Zaroxolyn) 2.5 mg DAILY 03/26/16 15:00 03/26/16 16:47 DC Nystatin (Nystop) 1 flavia BID 03/26/16 16:00 03/28/16 08:16 1 FLAVIA Ondansetron HCl 4 mg 4 mg PRN Q8HRS PRN 03/26/16 04:00 03/27/16 03:59 DC Potassium Chloride 40 meq 40 meq 1X ONCE 03/26/16 09:45 03/26/16 09:46 DC 03/26/16 12:18 40 MEQ Potassium Chloride (Klor-Con) 10 meq [id number] 03/26/16 17:00 03/28/16 08:11 10 MEQ Simvastatin (Zocor) 10 mg DAILY 03/27/16 09:00 UNV Sodium Chloride (Iv Sodium Chloride 0.9% 1000ml Bag) 1,000 ml @ 150 mls/hr [id number] 03/26/16 04:00 03/26/16 16:47 DC 03/26/16 04:34 150 MLS/HR Lab Laboratory Tests Test 03/27/16 11:55 03/27/16 12:03 03/27/16 16:37 03/27/16 17:45 Potassium Level 3.6mmol/L (3.5-5.1) 3.7mmol/L (3.5-5.1) Glucose (Fingerstick) 133mg/dL (70-99) 231mg/dL (70-99) Test 03/27/16 20:55 03/28/16 04:35 03/28/16 07:46 Glucose (Fingerstick) 219mg/dL (70-99) 103mg/dL (70-99) Sodium Level 139mmol/L (136-145) Potassium Level 3.6mmol/L (3.5-5.1) Chloride Level 102mmol/L (98-107) Carbon Dioxide Level 28mmol/L (21-32) Anion Gap 9 (6-14) Blood Urea Nitrogen 87mg/dL (7-20) Creatinine 3.3mg/dL (0.6-1.0) Estimated GFR (Cockcroft-Gault) 13.8 Glucose Level 97mg/dL (70-99) Calcium Level 8.9mg/dL (8.5-10.1) Phosphorus Level 3.3mg/dL (2.6-4.7) Magnesium Level 2.1mg/dL (1.8-2.4) Albumin 2.4g/dL (3.4-5.0) KARAN BARAJAS MD Mar 28, 2016 11:38
--- NOTE | 2016-03-28 12:34 | PDOC ---
PROGRESS NOTES Chief Complaint Chief Complaint Sepsis UTI ASSESSMENT AND PLAN: 1. Sepsis: febrile. Blood and urine cult with GPC. on Levaquin (mult allergies) 2. UTI: awaiting cult and sens, but had E.coli infect a couple of weeks ago, rx.ed with bactrim at home. 3. ZELDA: improving with hydration. Dr Sylvester following 4. CKD3-4: creat at baseline about 2.5 5. Anemia: 2/2 CKD. on oral iron. no indication for EPO (yet) 5. Hyponatremia: resolved 6. Hypokalemia: resolved 7. DM: somewhat fluctuating during day. continue current regimen, monitor serially 8. CAD: no acute issues. cont home meds 9. CHF: chronic diastolic/systolic: (historical EF 20, but on03/11 EF 60). monitor fluid status 10: Afib: good rate control. cont current meds 11. OAC: on apixaban for atrial fibrillation. 12. Hypothyroidism: on synthroid 13. Protein malnutrition: moderate in face of massive obesity; may be affected by current inflammation Vitals Vitals Vital Signs Date Time Temp Pulse Resp B/P Pulse Ox O2 Delivery O2 Flow Rate FiO2 03/28/16 11:30 98.1 57 18 129/88 99 Nasal Cannula 2.0 98.1 Physical Exam General: Alert, Oriented X3, No acute distress Heart: Regular rate, Other (4/6 CHAPIN) Lungs: Clear Abdomen: Normal bowel sounds, Soft, No tenderness, Other (massively obese) Extremities: No clubbing, No cyanosis, Other (2+ bilateral pedal edema, obese) Skin: No significant lesion Labs LABS Laboratory Tests Test 03/27/16 16:37 03/27/16 17:45 03/27/16 20:55 03/28/16 04:35 Glucose (Fingerstick) 231mg/dL (70-99) 219mg/dL (70-99) Potassium Level 3.7mmol/L (3.5-5.1) 3.6mmol/L (3.5-5.1) Sodium Level 139mmol/L (136-145) Chloride Level 102mmol/L (98-107) Carbon Dioxide Level 28mmol/L (21-32) Anion Gap 9 (6-14) Blood Urea Nitrogen 87mg/dL (7-20) Creatinine 3.3mg/dL (0.6-1.0) Estimated GFR (Cockcroft-Gault) 13.8 Glucose Level 97mg/dL (70-99) Calcium Level 8.9mg/dL (8.5-10.1) Phosphorus Level 3.3mg/dL (2.6-4.7) Magnesium Level 2.1mg/dL (1.8-2.4) Albumin 2.4g/dL (3.4-5.0) Test 03/28/16 07:46 03/28/16 11:50 Glucose (Fingerstick) 103mg/dL (70-99) 189mg/dL (70-99) Review of Systems Review of Systems very tired, breathing ok at rest. no pain JOSE MORELAND MD Mar 28, 2016 12:34
[2016-03-28] MEDS: SIMVASTATIN 10 MG TABLET PO SCH (21:21)
[2016-03-29 03:00] VITALS: BP 137/53
[2016-03-29 04:56] LABS: ALBUMIN 2.4 g/dL (3.4-5.0); CALCIUM 9.1 mg/dL (8.5-10.1); CREATININE 2.9 mg/dL (0.6-1.0); PHOSPHORUS 3.5 mg/dL (2.6-4.7); POTASSIUM 3.9 mmol/L (3.5-5.1)
[2016-03-29] MEDS: LEVOTHYROXINE 75 MCG TABLET PO SCH (06:11)
[2016-03-29 07:00] VITALS: BP 121/46
[2016-03-29] MEDS: INSULIN ASPART 300 UNITS/3 ML INSULN.PEN SQ SCH ×3 (08:00→17:00)
[2016-03-29] MEDS: POTASSIUM CHLORIDE 10 MEQ TABLET.ER. PO SCH (08:00)
[2016-03-29] MEDS: HYDRALAZINE 50 MG TABLET PO SCH ×3 (08:48→22:06)
[2016-03-29] MEDS: GLIPIZIDE 5 MG TABLET PO SCH ×2 (08:48→17:47)
[2016-03-29] MEDS: ISOSORBIDE MONONITRATE ER 30 MG TAB.ER.24H PO SCH (08:49)
[2016-03-29] MEDS: POTASSIUM CHLORIDE 20 MEQ TABLET.ER. PO PRN (08:49)
[2016-03-29] MEDS: AMIODARONE HCL 200 MG TABLET PO SCH (08:50)
[2016-03-29] MEDS: CARVEDILOL 12.5 MG TABLET PO SCH ×2 (08:50→17:47)
[2016-03-29] MEDS: APIXABAN 5 MG TABLET. PO SCH ×2 (08:50→22:05)
[2016-03-29] MEDS: FERROUS SULFATE 325 MG TABLET PO SCH (08:50)
[2016-03-29] MEDS: ALLOPURINOL 100 MG TABLET. PO SCH (08:50)
[2016-03-29] MEDS: LINAGLIPTIN 5 MG TABLET PO SCH (08:50)
[2016-03-29] MEDS: ASPIRIN ENTERIC COATED 81 MG TABLET.DR. PO SCH (08:50)
[2016-03-29] MEDS: NYSTATIN TOPICAL POWDER 15GM BOTTLE. TP SCH ×2 (09:00→22:07)
[2016-03-29 11:00] VITALS: BP 122/47
--- NOTE | 2016-03-29 12:34 | PDOC ---
PROGRESS NOTES Chief Complaint Chief Complaint Sepsis UTI ASSESSMENT 1. Sepsis 2. UTI 3. 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 Anemia 5. Hyponatremia 6. Hypokalemia 7. DM 8. CAD 9. CHF 10: Afib 11. OAC 12. Hypothyroidism 13. Protein malnutrition History of Present Illness History of Present Illness Patient resting comfortably in bed VSS DW RN Vitals Vitals Vital Signs Date Time Temp Pulse Resp B/P Pulse Ox O2 Delivery O2 Flow Rate FiO2 03/29/16 11:00 97.9 62 20 122/47 99 Nasal Cannula 2.0 97.9 Physical Exam General: Alert, Oriented X3, No acute distress Heart: Regular rate, Other (4/6 CHAPIN) Lungs: Clear, Other (no wheezes or crackles) Abdomen: Normal bowel sounds, Soft, No tenderness, Other (massively obese) Extremities: No clubbing, No cyanosis, Other (2+ bilateral pedal edema, obese) Skin: No rashes, No significant lesion Labs LABS Laboratory Tests Test 03/28/16 13:10 03/28/16 17:09 03/28/16 18:50 03/28/16 21:22 Potassium Level 4.0mmol/L (3.5-5.1) 3.9mmol/L (3.5-5.1) Glucose (Fingerstick) 163mg/dL (70-99) 174mg/dL (70-99) Test 03/29/16 03:55 03/29/16 07:51 03/29/16 11:45 Sodium Level 137mmol/L (136-145) Potassium Level 3.9mmol/L (3.5-5.1) Chloride Level 102mmol/L (98-107) Carbon Dioxide Level 28mmol/L (21-32) Anion Gap 7 (6-14) Blood Urea Nitrogen 85mg/dL (7-20) Creatinine 2.9mg/dL (0.6-1.0) Estimated GFR (Cockcroft-Gault) 16.0 Glucose Level 143mg/dL (70-99) Calcium Level 9.1mg/dL (8.5-10.1) Phosphorus Level 3.5mg/dL (2.6-4.7) Magnesium Level 2.3mg/dL (1.8-2.4) Albumin 2.4g/dL (3.4-5.0) Glucose (Fingerstick) 118mg/dL (70-99) 150mg/dL (70-99) Review of Systems Review of Systems Complains of general weakness Denies dysuria Assessment and Plan Assessmemt and Plan Problems Medical Problems: (1) Generalized weakness Status: Acute (2) Renal failure (ARF), acute on chronic Status: Acute (3) Renal failure, acute Status: Acute (4) Urinary tract infection Status: Acute (5) UTI symptoms Status: Acute ASSESSMENT AND PLAN: 1. Sepsis: febrile. Blood and urine cult with GPC. on Levaquin (mult allergies) 2. UTI: awaiting cult and sens, but had E.coli infect a couple of weeks ago, rx.ed with bactrim at home. 3. ZELDA: improving with hydration. Dr Sylvester following 4. CKD3-4: creat at baseline about 2.5 5. Anemia: 2/2 CKD. on oral iron. no indication for EPO (yet) 5. Hyponatremia: resolved 6. Hypokalemia: resolved 7. DM: somewhat fluctuating during day. continue current regimen, monitor serially 8. CAD: no acute issues. cont home meds 9. CHF: chronic diastolic/systolic: (historical EF 20, but on03/11 EF 60). monitor fluid status 10: Afib: good rate control. cont current meds 11. OAC: on apixaban for atrial fibrillation. 12. Hypothyroidism: on synthroid 13. Protein malnutrition: moderate in face of massive obesity; may be affected by current inflammation Continue Levaquin Continue fluids Recheck labs in AM Continue cardiac cath tech Problems: Comment Review of Relevant I have reviewed the following items daniel (where applicable) has been applied. Labs Laboratory Tests Test 03/27/16 16:37 03/27/16 17:45 03/27/16 20:55 03/28/16 04:35 Glucose (Fingerstick) 231mg/dL (70-99) 219mg/dL (70-99) Potassium Level 3.7mmol/L (3.5-5.1) 3.6mmol/L (3.5-5.1) Sodium Level 139mmol/L (136-145) Chloride Level 102mmol/L (98-107) Carbon Dioxide Level 28mmol/L (21-32) Anion Gap 9 (6-14) Blood Urea Nitrogen 87mg/dL (7-20) Creatinine 3.3mg/dL (0.6-1.0) Estimated GFR (Cockcroft-Gault) 13.8 Glucose Level 97mg/dL (70-99) Calcium Level 8.9mg/dL (8.5-10.1) Phosphorus Level 3.3mg/dL (2.6-4.7) Magnesium Level 2.1mg/dL (1.8-2.4) Albumin 2.4g/dL (3.4-5.0) Test 03/28/16 07:46 03/28/16 11:50 03/28/16 13:10 03/28/16 17:09 Glucose (Fingerstick) 103mg/dL (70-99) 189mg/dL (70-99) 163mg/dL (70-99) Potassium Level 4.0mmol/L (3.5-5.1) Test 03/28/16 18:50 03/28/16 21:22 03/29/16 03:55 03/29/16 07:51 Potassium Level 3.9mmol/L (3.5-5.1) 3.9mmol/L (3.5-5.1) Glucose (Fingerstick) 174mg/dL (70-99) 118mg/dL (70-99) Sodium Level 137mmol/L (136-145) Chloride Level 102mmol/L (98-107) Carbon Dioxide Level 28mmol/L (21-32) Anion Gap 7 (6-14) Blood Urea Nitrogen 85mg/dL (7-20) Creatinine 2.9mg/dL (0.6-1.0) Estimated GFR (Cockcroft-Gault) 16.0 Glucose Level 143mg/dL (70-99) Calcium Level 9.1mg/dL (8.5-10.1) Phosphorus Level 3.5mg/dL (2.6-4.7) Magnesium Level 2.3mg/dL (1.8-2.4) Albumin 2.4g/dL (3.4-5.0) Test 03/29/16 11:45 Glucose (Fingerstick) 150mg/dL (70-99) Laboratory Tests Test 03/28/16 13:10 03/28/16 17:09 03/28/16 18:50 03/28/16 21:22 Potassium Level 4.0mmol/L (3.5-5.1) 3.9mmol/L (3.5-5.1) Glucose (Fingerstick) 163mg/dL (70-99) 174mg/dL (70-99) Test 03/29/16 03:55 03/29/16 07:51 03/29/16 11:45 Sodium Level 137mmol/L (136-145) Potassium Level 3.9mmol/L (3.5-5.1) Chloride Level 102mmol/L (98-107) Carbon Dioxide Level 28mmol/L (21-32) Anion Gap 7 (6-14) Blood Urea Nitrogen 85mg/dL (7-20) Creatinine 2.9mg/dL (0.6-1.0) Estimated GFR (Cockcroft-Gault) 16.0 Glucose Level 143mg/dL (70-99) Calcium Level 9.1mg/dL (8.5-10.1) Phosphorus Level 3.5mg/dL (2.6-4.7) Magnesium Level 2.3mg/dL (1.8-2.4) Albumin 2.4g/dL (3.4-5.0) Glucose (Fingerstick) 118mg/dL (70-99) 150mg/dL (70-99) Microbiology 03/26/16 Blood Culture - Final, Complete 03/26/16 Blood Culture Result 1 (TYLER) - Final, Complete 03/26/16 Antimicrobic Susceptibility - Final, Complete 03/26/16 Urine Culture - Final, Complete 03/26/16 Urine Culture Result 1 (TYLER) - Final, Complete 03/26/16 Antimicrobic Susceptibility - Final, Complete Medications Current Medications Sodium Chloride 1,000 ml @ 1,000 mls/hr 1X ONCE IV Last administered on 03:50; Start 03/26/16 at 04:00; Stop 03/26/16 at 04:59; Status DC Levofloxacin/ Dextrose (LEVAQUIN 500mg PREMIX) 100 ml @ 100 mls/hr 1X ONCE IV Last administered on 03/26/16 04:34; Start 03/26/16 at 04:00; Stop 03/26/16 at 04:59; Status DC Ondansetron HCl 4 mg 4 mg PRN Q8HRS PRN IV NAUSEA/VOMITING; Start 03/26/16 at 04 :00; Stop 03/27/16 at 03:59; Status DC Sodium Chloride (Iv Sodium Chloride 0.9% 1000ml Bag) 1,000 ml @ 150 mls/hr Q6H40M IV Last administered on 03/26/16 04:34; Start 03/26/16 at 04:00; Stop 03/26/16 at 16:47; Status DC Acetaminophen (Tylenol) 650 mg PRN Q4HRS PRN PO FEVER; Start 03/26/16 at 04:00; Stop 03/27/16 at 03:59; Status DC Insulin Aspart (Novolog) 0-7 UNITS TIDWMEALS SQ Last administered on 03/26/16 12:20; Start 03/26/16 at 08:00; Stop 03/26/16 at 18:05; Status DC Dextrose 12.5 gm PRN Q15MIN PRN IV SEE COMMENTS; Start 03/26/16 at 04:15; Stop 03/26/16 at 18:05; Status DC Potassium Chloride 40 meq 40 meq 1X ONCE PO Last administered on 03/26/16 12: 18; Start 03/26/16 at 09:45; Stop 03/26/16 at 09:46; Status DC Magnesium Sulfate/ Dextrose (Magnesium Sulfate PREMIX 2GM) 50 ml @ 25 mls/hr PRN DAILY PRN IV for Mag < 1.7 on am labs; Start 03/26/16 at 11:15 Potassium Chloride (Klor-Con) 40 meq PRN Q6HRS PRN PO form K < 3.8 Last administered on 03/29/16 08:49; Start 03/26/16 at 11:15 Amiodarone HCl (Cordarone) 200 mg DAILY PO Last administered on 03/29/16 08:50 ; Start 03/26/16 at 13:00 Apixaban (Eliquis) 5 mg BID PO Last administered on 03/29/16 08:50; Start at 13:00 Carvedilol (Coreg) 12.5 mg BIDWMEALS PO Last administered on 03/29/16 08:50; Start 03/26/16 at 17:00 Aspirin (Ecotrin) 81 mg DAILYWBKFT PO Last administered on 03/29/16 08:50; Start 03/26/16 at 13:00 Simvastatin (Zocor) 10 mg QHS PO Last administered on 03/28/16 21:21; Start 03/26/16 at 21:00 Isosorbide Mononitrate (Imdur) 30 mg DAILY PO Last administered on 03/29/16 08: 49; Start 03/26/16 at 13:00 Hydralazine HCl (Apresoline) 25 mg TID PO Last administered on 03/26/16 14:50; Start 03/26/16 at 14:00; Stop 03/26/16 at 15:09; Status DC Allopurinol (Zyloprim) 100 mg DAILY PO Last administered on 03/27/16 07:49; Start 03/26/16 at 15:00; Stop 03/27/16 at 17:21; Status DC Amiodarone HCl (Cordarone) 200 mg DAILY PO ; Start 03/27/16 at 09:00; Status UNV Apixaban (Eliquis) 5 mg BID PO ; Start 03/26/16 at 21:00; Status UNV Aspirin (Ecotrin) 81 mg DAILY PO ; Start 03/27/16 at 09:00; Status UNV Carvedilol (Coreg) 12.5 mg BIDWMEALS PO ; Start 03/26/16 at 17:00; Status UNV Ferrous Sulfate (Feosol) 325 mg DAILY PO Last administered on 03/29/16 08:50; Start 03/26/16 at 17:00 Furosemide (Lasix) 80 mg DAILY PO ; Start 03/26/16 at 15:15; Stop 03/26/16 at 16: 47; Status DC Glipizide (Glucotrol) 5 mg BIDAC PO Last administered on 03/29/16 08:48; Start 03/26/16 at 16:30 Hydralazine HCl (Apresoline) 50 mg TID PO Last administered on 03/29/16 08:48; Start 03/26/16 at 21:00 Isosorbide Mononitrate (Imdur) 50 mg DAILY PO ; Start 03/27/16 at 09:00; Status UNV Levothyroxine Sodium (Synthroid) 75 mcg DAILY07 PO Last administered on 06:11; Start 03/27/16 at 07:00 Metolazone (Zaroxolyn) 2.5 mg DAILY PO ; Start 03/26/16 at 15:00; Stop 03/26/16 at 16:47; Status DC Nystatin (Nystop) 1 flower BID TP Last administered on 03/29/16 09:00; Start at 16:00 Simvastatin (Zocor) 10 mg DAILY PO ; Start 03/27/16 at 09:00; Status UNV Potassium Chloride (Klor-Con) 10 meq DAILYWBKFT PO Last administered on 08:11; Start 03/26/16 at 17:00 Linagliptin (Tradjenta) 5 mg DAILY PO Last administered on 03/29/16 08:50; Start 03/27/16 at 07:32 Info (Anti-Coagulation Monitoring By Pharmacy) 1 each PRN DAILY PRN MC SEE COMMENTS; Start 03/26/16 at 18:00 Insulin Aspart (Novolog) 0-7 UNITS TIDWMEALS SQ Last administered on 03/28/16 17:35; Start 03/27/16 at 08:00 Dextrose 12.5 gm 12.5 gm PRN Q15MIN PRN IV SEE COMMENTS; Start 03/26/16 at 18:00 Levofloxacin/ Dextrose 150 ml @ 100 mls/hr Q24H IV ; Start 03/26/16 at 18:15; Status UNV Levofloxacin/ Dextrose (LEVAQUIN 250mg PREMIX) 50 ml @ 50 mls/hr Q24H IV Last administered on 03/29/16 06:11; Start 03/27/16 at 06:00 Allopurinol (Zyloprim) 100 mg DAILY PO Last administered on 03/29/16 08:50; Start 03/28/16 at 09:00 Active Scripts Active Carvedilol 12.5 Mg Tablet 12.5 Mg PO BIDWMEALS Eliquis (Apixaban) 5 Mg Tablet 5 Mg PO BID Reported Potassium Chloride 10 Meq Capsule.er 10 Meq PO DAILY Januvia (Sitagliptin Phosphate) 50 Mg Tablet 1 Tab PO DAILY Nystatin 15 Gm Powder 10,000 Flower TP BID Aspir 81 (Aspirin) 81 Mg Tablet.dr 1 Tab PO DAILY Glipizide 5 Mg Tablet 1 Tab PO BID Allopurinol 300 Mg Tablet 1 Tab PO DAILY Amiodarone Hcl 200 Mg Tablet 1 Tab PO DAILY Levothyroxine Sodium 75 Mcg Tablet 1 Tab PO DAILY Simvastatin 10 Mg Tablet 10 Mg PO DAILY Metolazone 2.5 Mg Tablet 2.5 Mg PO DAILY Isosorbide Mononitrate Er (Isosorbide Mononitrate) 30 Mg Tab.er.24h 50 Mg PO DAILY Ferrous Sulfate 325 Mg Tablet 1 Tab PO DAILY Hydralazine Hcl 50 Mg Tablet 1 Tab PO TID Lasix (Furosemide) 80 Mg Tablet 1 Tab PO DAILY Vitals/I & O Vital Sign - Last 24 Hours 03/28/16 03/28/16 03/28/16 03/28/16 15:00 15:59 16:02 19:00 Temp 97.7 98.8 97.7 98.8 Pulse 60 60 60 55 Resp 18 20 B/P 122/55 122/55 122/55 142/46 Pulse Ox 98 96 O2 Delivery Nasal Cannula Nasal Cannula O2 Flow Rate 2.0 3.0 03/28/16 03/28/16 03/28/16 03/29/16 20:00 21:22 23:00 03:00 Temp 98.2 98.1 98.2 98.1 Pulse 55 60 59 Resp 20 20 B/P 142/46 150/46 137/53 Pulse Ox 96 98 O2 Delivery Nasal Cannula Nasal Cannula Nasal Cannula O2 Flow Rate 2.0 2.0 2.0 03/29/16 03/29/16 03/29/16 03/29/16 07:00 08:00 08:48 08:49 Temp 97.7 97.7 Pulse 63 63 63 Resp 20 B/P 121/46 121/46 121/46 Pulse Ox 99 O2 Delivery Nasal Cannula Nasal Cannula O2 Flow Rate 2.0 2.0 03/29/16 03/29/16 03/29/16 08:50 08:50 11:00 Temp 97.9 97.9 Pulse 63 63 62 Resp 20 B/P 121/46 121/46 122/47 Pulse Ox 99 O2 Delivery Nasal Cannula O2 Flow Rate 2.0 Intake and Output 03/28/16 03/28/16 03/29/16 15:00 23:00 07:00 Intake Total 220 ml 1100 ml 300 ml Output Total 1000 ml 750 ml Balance -780 ml 350 ml 300 ml HANNY GOTTI III DO Mar 29, 2016 12:34
--- NOTE | 2016-03-29 12:39 | PDOC ---
SUBJECTIVE ROS ZELDA/ CKD IV Dopign and feeling better overall CVS: no Orthopnea, no CP RESP: no SOB, no ROCHA GI: min Nausea, no Vomiting : no Dysuria, no Urgency OBJECTIVE Vital Signs Vital Signs Date Time Temp Pulse Resp B/P Pulse Ox O2 Delivery O2 Flow Rate FiO2 03/29/16 11:00 97.9 62 20 122/47 99 Nasal Cannula 2.0 97.9 I & 0 Intake and Output 03/29/16 07:00 Intake Total 1620 ml Output Total 1750 ml Balance -130 ml Intake Oral 1620 ml Output Urine Total 1750 ml PHYSICAL EXAM Physical Exam General Appearance: Awake Alert Oriented x 3 In no Distress Eyes: VIsion Unchanged Conjunctiva Normal EN: No EN Drainage Mucous Memb. moist Neck: no JVD no JVP Supple no Thyromegaly; Short thick neck CVS: S1 S2 no audible Murmur No Gallop No Rub no pitting Edema (+ Pre-Tibial fat) - distal HS Resp: no Rales no Rhonchi no Acc. Muscle use; Distal BS GI: BAS +ve NO Bruit Non Tender Non Distended : min CVA tenderness; ? Suprapubic Tenderness Assessment & Plan ARF: (? ATN/ AIN/ Pyelonephritis) vs VMN due to diuretics - Creat is a little better today. min improvement with IVF. watch off of IVF. Current FLuid and E- lyte status does not necessitate emergent need for Dialysis. Will re-evaluate for Dialysis in am CKD IV at baseline - Creat of ~ 2.5 on last check; Previous CT Scan in 01/2016 shows some atrophy of Kidneys and thinning. DESMOND cannot be ruled out Vol depletion - appears to have resolved ? UTI with Hematuria (E.Coli) - Abx per Dr Lagos; No stones were noted to my eye on previous Ct (none reported) Recc Pyelo - may need URO eval as OP HTN: Current BP meds reviewed. See orders for changes. HypoALbuminemia - watch trend. suspect low A/G ratio due to ch infection. Low K - replaced per sliding scale and now WNL Anemia of CKD _ EPO as ordereed Discussed Plan of Care and prognosis etc. at length with pt COMMENT/RELEVANT DATA Meds Current Medications Medications (Trade) Dose Ordered Sig/Dejon Start Time Stop Time Status Last Admin Dose Admin Acetaminophen (Tylenol) 650 mg PRN Q4HRS PRN 2/3/17 04:00 03/27/16 03:59 DC Allopurinol (Zyloprim) 100 mg DAILY 03/28/16 09:00 03/29/16 08:50 100 MG Amiodarone HCl (Cordarone) 200 mg DAILY 03/27/16 09:00 UNV Apixaban (Eliquis) 5 mg BID 03/26/16 21:00 UNV Aspirin (Ecotrin) 81 mg DAILY 03/27/16 09:00 UNV Carvedilol (Coreg) 12.5 mg BIDWMEALS 03/26/16 17:00 UNV Dextrose 12.5 gm PRN Q15MIN PRN 03/26/16 04:15 03/26/16 18:05 DC Dextrose 12.5 gm 12.5 gm PRN Q15MIN PRN 03/26/16 18:00 Ferrous Sulfate (Feosol) 325 mg DAILY 03/26/16 17:00 03/29/16 08:50 325 MG Furosemide (Lasix) 80 mg DAILY 03/26/16 15:15 03/26/16 16:47 DC Glipizide (Glucotrol) 5 mg BIDAC 03/26/16 16:30 03/29/16 08:48 5 MG Hydralazine HCl (Apresoline) 50 mg TID 03/26/16 21:00 03/29/16 08:48 50 MG Info (Anti-Coagulation Monitoring By Pharmacy) 1 each PRN DAILY PRN 03/26/16 18:00 Insulin Aspart (Novolog) 0-7 UNITS TIDWMEALS 03/27/16 08:00 03/28/16 17:35 3 UNITS Isosorbide Mononitrate (Imdur) 50 mg DAILY 03/27/16 09:00 UNV Levofloxacin/ Dextrose (LEVAQUIN 250mg PREMIX) 50 ml @ 50 mls/hr Q24H 03/27/16 06:00 03/29/16 06:11 50 MLS/HR Levofloxacin/ Dextrose (LEVAQUIN 500mg PREMIX) 100 ml @ 100 mls/hr 1X ONCE 03/26/16 04:00 03/26/16 04:59 DC 03/26/16 04:34 100 MLS/HR Levothyroxine Sodium (Synthroid) 75 mcg DAILY07 03/27/16 07:00 2/6/17 06:11 75 MCG Linagliptin (Tradjenta) 5 mg DAILY 03/27/16 07:32 03/29/16 08:50 5 MG Magnesium Sulfate/ Dextrose (Magnesium Sulfate PREMIX 2GM) 50 ml @ 25 mls/hr PRN DAILY PRN 03/26/16 11:15 Metolazone (Zaroxolyn) 2.5 mg DAILY 03/26/16 15:00 03/26/16 16:47 DC Nystatin (Nystop) 1 flavia BID 03/26/16 16:00 03/29/16 09:00 1 FLAVIA Ondansetron HCl 4 mg 4 mg PRN Q8HRS PRN 03/26/16 04:00 03/27/16 03:59 DC Potassium Chloride 40 meq 40 meq 1X ONCE 03/26/16 09:45 03/26/16 09:46 DC 03/26/16 12:18 40 MEQ Potassium Chloride (Klor-Con) 10 meq DAILYWBKFT 03/26/16 17:00 03/28/16 08:11 10 MEQ Simvastatin (Zocor) 10 mg DAILY 03/27/16 09:00 UNV Sodium Chloride (Iv Sodium Chloride 0.9% 1000ml Bag) 1,000 ml @ 150 mls/hr Q6H40M 03/26/16 04:00 03/26/16 16:47 DC 03/26/16 04:34 150 MLS/HR Lab Laboratory Tests Test 03/28/16 13:10 03/28/16 17:09 03/28/16 18:50 03/28/16 21:22 Potassium Level 4.0mmol/L (3.5-5.1) 3.9mmol/L (3.5-5.1) Glucose (Fingerstick) 163mg/dL (70-99) 174mg/dL (70-99) Test 03/29/16 03:55 03/29/16 07:51 03/29/16 11:45 Sodium Level 137mmol/L (136-145) Potassium Level 3.9mmol/L (3.5-5.1) Chloride Level 102mmol/L (98-107) Carbon Dioxide Level 28mmol/L (21-32) Anion Gap 7 (6-14) Blood Urea Nitrogen 85mg/dL (7-20) Creatinine 2.9mg/dL (0.6-1.0) Estimated GFR (Cockcroft-Gault) 16.0 Glucose Level 143mg/dL (70-99) Calcium Level 9.1mg/dL (8.5-10.1) Phosphorus Level 3.5mg/dL (2.6-4.7) Magnesium Level 2.3mg/dL (1.8-2.4) Albumin 2.4g/dL (3.4-5.0) Glucose (Fingerstick) 118mg/dL (70-99) 150mg/dL (70-99) KARAN BARAJAS MD Mar 29, 2016 12:39
[2016-03-29 15:00] VITALS: BP 129/59
[2016-03-29 19:00] VITALS: BP 129/61
[2016-03-29] MEDS ORDERED: DARBEPOETIN ALFA 100 MCG/0.5 ML DISP.SYRIN. SQ SCH (21:00)
[2016-03-29] MEDS: SIMVASTATIN 10 MG TABLET PO SCH (22:04)
[2016-03-29 23:00] VITALS: BP 130/56
[2016-03-30 03:00] VITALS: BP_SYST 124; BP_SYST 160; BP_DIAS 55; BP_DIAS 92
[2016-03-30] MEDS: LEVOTHYROXINE 75 MCG TABLET PO SCH (06:33)
[2016-03-30 07:00] VITALS: BP 125/52
[2016-03-30 07:59] LABS: BASO % 1 % (0-3); EOS % 1 % (0-3); HEMOGLOBIN 10.1 g/dL (12.0-15.5); LYMPH # 0.9 x10^3/uL (1.0-4.8); LYMPH % 17 % (24-48); MEAN CORPUSCULAR HEMOGLOBIN 32 pg (25-35); MEAN CORPUSCULAR HGB CONC 33 g/dL (31-37); MEAN CORPUSCULAR VOLUME 96 fL (79-100); MONO % 14 % (0-9); NEUT % 67 % (31-73); PLATELET COUNT 136 x10^3/uL (140-400); RED BLOOD COUNT 3.22 x10^6/uL (3.50-5.40); RED CELL DISTRIBUTION WIDTH 15.1 % (11.5-14.5); WHITE BLOOD COUNT 5.4 x10^3/uL (4.0-11.0)
[2016-03-30] MEDS: INSULIN ASPART 300 UNITS/3 ML INSULN.PEN SQ SCH ×3 (08:00→17:00)
[2016-03-30 08:53] LABS: ALBUMIN 2.4 g/dL (3.4-5.0); CALCIUM 9.2 mg/dL (8.5-10.1); CREATININE 2.4 mg/dL (0.6-1.0); PHOSPHORUS 3.4 mg/dL (2.6-4.7); POTASSIUM 4.1 mmol/L (3.5-5.1)
[2016-03-30] MEDS: ASPIRIN ENTERIC COATED 81 MG TABLET.DR. PO SCH (09:40)
[2016-03-30] MEDS: POTASSIUM CHLORIDE 10 MEQ TABLET.ER. PO SCH (09:41)
[2016-03-30] MEDS: CARVEDILOL 12.5 MG TABLET PO SCH ×2 (09:42→17:56)
[2016-03-30] MEDS: HYDRALAZINE 50 MG TABLET PO SCH ×3 (09:43→21:33)
[2016-03-30] MEDS: ISOSORBIDE MONONITRATE ER 30 MG TAB.ER.24H PO SCH (09:43)
[2016-03-30] MEDS: GLIPIZIDE 5 MG TABLET PO SCH ×2 (09:43→17:56)
[2016-03-30] MEDS: APIXABAN 5 MG TABLET. PO SCH ×2 (09:44→21:33)
[2016-03-30] MEDS: AMIODARONE HCL 200 MG TABLET PO SCH (09:44)
[2016-03-30] MEDS: ALLOPURINOL 100 MG TABLET. PO SCH (09:44)
[2016-03-30] MEDS: FERROUS SULFATE 325 MG TABLET PO SCH (09:44)
[2016-03-30] MEDS: LINAGLIPTIN 5 MG TABLET PO SCH (09:44)
[2016-03-30] MEDS: NYSTATIN TOPICAL POWDER 15GM BOTTLE. TP SCH ×2 (09:47→21:34)
--- NOTE | 2016-03-30 10:31 | PDOC ---
SUBJECTIVE ROS Van/ CK DIII/ Iv doigna nd feeling m uch ebtter today CVS: no Orthopnea, no CP RESP: no SOB, no ROCHA GI: no Nausea, no Vomiting : no Dysuria, no Urgency OBJECTIVE Vital Signs Vital Signs Date Time Temp Pulse Resp B/P Pulse Ox O2 Delivery O2 Flow Rate FiO2 03/30/16 09:44 56 125/52 03/30/16 08:00 Nasal Cannula 3.0 03/30/16 07:00 98.1 18 97 98.1 I & 0 Intake and Output 03/30/16 07:00 Intake Total 1380 ml Output Total 2325 ml Balance -945 ml Intake Oral 1330 ml IV Total 50 ml Output Urine Total 2325 ml # Voids 1 PHYSICAL EXAM Physical Exam General Appearance: Awake Alert Oriented x 3 In no Distress Eyes: VIsion Unchanged Conjunctiva Normal EN: No EN Drainage Mucous Memb. moist Neck: no JVD no JVP Supple no Thyromegaly; Short thick neck CVS: S1 S2 no audible Murmur No Gallop No Rub no pitting Edema (+ Pre-Tibial fat) - distal HS Resp: no Rales no Rhonchi no Acc. Muscle use; Distal BS GI: BAS +ve NO Bruit Non Tender Non Distended : min CVA tenderness; ? Suprapubic Tenderness Assessment & Plan ARF: (? ATN/ AIN/ Pyelonephritis) vs VMN due to diuretics - Creat is a little better today. min improvement with IVF. watch off of IVF. Current FLuid and E- lyte status does not necessitate emergent need for Dialysis. Will re-evaluate for Dialysis in am CKD IV at baseline - Creat of ~ 2.5 on last check; Previous CT Scan in 01/2016 shows some atrophy of Kidneys and thinning. DESMOND cannot be ruled out ? UTI with Hematuria (E.Coli) - Abx per Dr Lagos; No stones were noted to my eye on previous Ct (none reported) Recc Pyelo - may need URO eval as OP HTN: Current BP meds reviewed. See orders for changes. HypoALbuminemia - watch trend. suspect low A/G ratio due to ch infection. - may need PEPs checked as OP Anemia of CKD - EPO as ordered Discussed Plan of Care and prognosis etc. at length with pt COMMENT/RELEVANT DATA Meds Current Medications Medications (Trade) Dose Ordered Sig/Dejon Start Time Stop Time Status Last Admin Dose Admin Acetaminophen (Tylenol) 650 mg PRN Q4HRS PRN 03/26/16 04:00 03/27/16 03:59 DC Allopurinol (Zyloprim) 100 mg DAILY 03/28/16 09:00 03/30/16 09:44 100 MG Amiodarone HCl (Cordarone) 200 mg DAILY 03/27/16 09:00 UNV Apixaban (Eliquis) 5 mg BID 03/26/16 21:00 UNV Aspirin (Ecotrin) 81 mg DAILY 03/27/16 09:00 UNV Carvedilol (Coreg) 12.5 mg BIDWMEALS 03/26/16 17:00 UNV Darbepoetin Pasha (Aranesp) 100 mcg WEEKLYHS 03/29/16 21:00 03/29/16 22:04 100 MCG Dextrose 12.5 gm PRN Q15MIN PRN 03/26/16 04:15 03/26/16 18:05 DC Dextrose 12.5 gm 12.5 gm PRN Q15MIN PRN 03/26/16 18:00 Ferrous Sulfate (Feosol) 325 mg DAILY 03/26/16 17:00 03/30/16 09:44 325 MG Furosemide (Lasix) 80 mg DAILY 03/26/16 15:15 03/26/16 16:47 DC Glipizide (Glucotrol) 5 mg BIDAC 03/26/16 16:30 03/30/16 09:43 5 MG Hydralazine HCl (Apresoline) 50 mg TID 03/26/16 21:00 03/30/16 09:43 50 MG Info (Anti-Coagulation Monitoring By Pharmacy) 1 each PRN DAILY PRN 03/26/16 18:00 Insulin Aspart (Novolog) 0-7 UNITS TIDWMEALS 03/27/16 08:00 03/28/16 17:35 3 UNITS Isosorbide Mononitrate (Imdur) 50 mg DAILY 03/27/16 09:00 UNV Levofloxacin/ Dextrose (LEVAQUIN 250mg PREMIX) 50 ml @ 50 mls/hr Q24H 03/27/16 06:00 03/30/16 06:34 50 MLS/HR Levofloxacin/ Dextrose (LEVAQUIN 500mg PREMIX) 100 ml @ 100 mls/hr 1X ONCE 03/26/16 04:00 03/26/16 04:59 DC 03/26/16 04:34 100 MLS/HR Levothyroxine Sodium (Synthroid) 75 mcg DAILY07 03/27/16 07:00 03/30/16 06:33 75 MCG Linagliptin (Tradjenta) 5 mg DAILY 03/27/16 07:32 03/30/16 09:44 5 MG Magnesium Sulfate/ Dextrose (Magnesium Sulfate PREMIX 2GM) 50 ml @ 25 mls/hr PRN DAILY PRN 03/26/16 11:15 Metolazone (Zaroxolyn) 2.5 mg DAILY 03/26/16 15:00 03/26/16 16:47 DC Nystatin (Nystop) 1 flavia BID 03/26/16 16:00 03/30/16 09:47 1 FLAVIA Ondansetron HCl 4 mg 4 mg PRN Q8HRS PRN 03/26/16 04:00 03/27/16 03:59 DC Potassium Chloride 40 meq 40 meq 1X ONCE 03/26/16 09:45 03/26/16 09:46 DC 03/26/16 12:18 40 MEQ Potassium Chloride (Klor-Con) 10 meq DAILYWBKFT 03/26/16 17:00 03/30/16 09:41 10 MEQ Simvastatin (Zocor) 10 mg DAILY 03/27/16 09:00 UNV Sodium Chloride (Iv Sodium Chloride 0.9% 1000ml Bag) 1,000 ml @ 150 mls/hr Q6H40M 03/26/16 04:00 03/26/16 16:47 DC 03/26/16 04:34 150 MLS/HR Lab Laboratory Tests Test 03/29/16 11:45 03/29/16 17:00 03/29/16 20:57 03/30/16 07:05 Glucose (Fingerstick) 150mg/dL (70-99) 140mg/dL (70-99) 223mg/dL (70-99) White Blood Count 5.4x10^3/uL (4.0-11.0) Red Blood Count 3.22x10^6/uL (3.50-5.40) Hemoglobin 10.1g/dL (12.0-15.5) Hematocrit 31.0% (36.0-47.0) Mean Corpuscular Volume 96fL (79-100) Mean Corpuscular Hemoglobin 32pg (25-35) Mean Corpuscular Hemoglobin Concent 33g/dL (31-37) Red Cell Distribution Width 15.1% (11.5-14.5) Platelet Count 136x10^3/uL (140-400) Neutrophils (%) (Auto) 67% (31-73) Lymphocytes (%) (Auto) 17% (24-48) Monocytes (%) (Auto) 14% (0-9) Eosinophils (%) (Auto) 1% (0-3) Basophils (%) (Auto) 1% (0-3) Neutrophils # (Auto) 3.6x10^3uL (1.8-7.7) Lymphocytes # (Auto) 0.9x10^3/uL (1.0-4.8) Monocytes # (Auto) 0.8x10^3/uL (0.0-1.1) Eosinophils # (Auto) 0.1x10^3/uL (0.0-0.7) Basophils # (Auto) 0.0x10^3/uL (0.0-0.2) Sodium Level 140mmol/L (136-145) Potassium Level 4.1mmol/L (3.5-5.1) Chloride Level 104mmol/L (98-107) Carbon Dioxide Level 28mmol/L (21-32) Anion Gap 8 (6-14) Blood Urea Nitrogen 76mg/dL (7-20) Creatinine 2.4mg/dL (0.6-1.0) Estimated GFR (Cockcroft-Gault) 20.0 Glucose Level 83mg/dL (70-99) Calcium Level 9.2mg/dL (8.5-10.1) Phosphorus Level 3.4mg/dL (2.6-4.7) Magnesium Level 2.4mg/dL (1.8-2.4) Albumin 2.4g/dL (3.4-5.0) Test 03/30/16 08:18 Glucose (Fingerstick) 93mg/dL (70-99) KARAN BARAJAS MD Mar 30, 2016 10:31
[2016-03-30 10:34] VITALS: BP 89/50
--- NOTE | 2016-03-30 11:07 | PDOC ---
PROGRESS NOTES Chief Complaint Chief Complaint Sepsis UTI ASSESSMENT 1. Sepsis 2. UTI 3. 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 Anemia 5. Hyponatremia 6. Hypokalemia 7. DM 8. CAD 9. CHF - Lowest EF in the past at <20% on 02/05/2016. MPI on 03/11/2016 noted with EF>60% 10: Afib 11. OAC 12. Hypothyroidism 13. Protein malnutrition History of Present Illness History of Present Illness Patient up in chair Has bloody nose Feels weak Catheter removed Pt has difficulty walking Pt wishes to be discharged to home health VSS DW RN Vitals Vitals Vital Signs Date Time Temp Pulse Resp B/P Pulse Ox O2 Delivery O2 Flow Rate FiO2 03/30/16 10:34 97.9 53 18 89/50 98 Nasal Cannula 2.0 97.9 Physical Exam General: Alert, Oriented X3, No acute distress Heart: Regular rate, No murmurs, Other (4/6 CHAPIN) Lungs: Clear, Other (no wheezes or crackles) Abdomen: Normal bowel sounds, Soft, No tenderness, Other (massively obese) Extremities: No clubbing, No cyanosis, Other (2+ bilateral pedal edema, obese) Skin: No rashes, No significant lesion Labs LABS Laboratory Tests Test 03/29/16 11:45 03/29/16 17:00 03/29/16 20:57 03/30/16 07:05 Glucose (Fingerstick) 150mg/dL (70-99) 140mg/dL (70-99) 223mg/dL (70-99) White Blood Count 5.4x10^3/uL (4.0-11.0) Red Blood Count 3.22x10^6/uL (3.50-5.40) Hemoglobin 10.1g/dL (12.0-15.5) Hematocrit 31.0% (36.0-47.0) Mean Corpuscular Volume 96fL (79-100) Mean Corpuscular Hemoglobin 32pg (25-35) Mean Corpuscular Hemoglobin Concent 33g/dL (31-37) Red Cell Distribution Width 15.1% (11.5-14.5) Platelet Count 136x10^3/uL (140-400) Neutrophils (%) (Auto) 67% (31-73) Lymphocytes (%) (Auto) 17% (24-48) Monocytes (%) (Auto) 14% (0-9) Eosinophils (%) (Auto) 1% (0-3) Basophils (%) (Auto) 1% (0-3) Neutrophils # (Auto) 3.6x10^3uL (1.8-7.7) Lymphocytes # (Auto) 0.9x10^3/uL (1.0-4.8) Monocytes # (Auto) 0.8x10^3/uL (0.0-1.1) Eosinophils # (Auto) 0.1x10^3/uL (0.0-0.7) Basophils # (Auto) 0.0x10^3/uL (0.0-0.2) Sodium Level 140mmol/L (136-145) Potassium Level 4.1mmol/L (3.5-5.1) Chloride Level 104mmol/L (98-107) Carbon Dioxide Level 28mmol/L (21-32) Anion Gap 8 (6-14) Blood Urea Nitrogen 76mg/dL (7-20) Creatinine 2.4mg/dL (0.6-1.0) Estimated GFR (Cockcroft-Gault) 20.0 Glucose Level 83mg/dL (70-99) Calcium Level 9.2mg/dL (8.5-10.1) Phosphorus Level 3.4mg/dL (2.6-4.7) Magnesium Level 2.4mg/dL (1.8-2.4) Albumin 2.4g/dL (3.4-5.0) Test 03/30/16 08:18 Glucose (Fingerstick) 93mg/dL (70-99) Review of Systems Review of Systems Complains of general weakness Complains of cough Assessment and Plan Assessmemt and Plan Problems Medical Problems: (1) Generalized weakness Status: Acute (2) Renal failure (ARF), acute on chronic Status: Acute (3) Renal failure, acute Status: Acute (4) Urinary tract infection Status: Acute (5) UTI symptoms Status: Acute ASSESSMENT AND PLAN: 1. Sepsis: Blood and urine cult with GPC. on Levaquin (mult allergies) 2. UTI: E.coli on urine culture, infect a couple of weeks ago, rx.ed with bactrim at home. 3. ZELDA: improving with hydration. Dr Sylvester following 4. CKD3-4: creat at baseline about 2.5 5. Anemia: 2/2 CKD. on oral iron. no indication for EPO (yet) 5. Hyponatremia: resolved 6. Hypokalemia: resolved 7. DM: somewhat fluctuating during day. continue current regimen, monitor serially 8. CAD: no acute issues. cont home meds 9. CHF: chronic diastolic/systolic: (historical EF 20, but on03/11 EF 60). monitor fluid status 10: Afib: good rate control. cont current meds 11. OAC: on apixaban for atrial fibrillation. 12. Hypothyroidism: on synthroid 13. Protein malnutrition: moderate in face of massive obesity; may be affected by current inflammation Continue Levaquin Fluids restriction due to CHF Recheck labs in AM Continue assessment nurse PTOT D/C if ok with nephrology Problems: Comment Review of Relevant I have reviewed the following items daniel (where applicable) has been applied. Labs Laboratory Tests Test 03/28/16 11:50 03/28/16 13:10 03/28/16 17:09 03/28/16 18:50 Glucose (Fingerstick) 189mg/dL (70-99) 163mg/dL (70-99) Potassium Level 4.0mmol/L (3.5-5.1) 3.9mmol/L (3.5-5.1) Test 03/28/16 21:22 03/29/16 03:55 03/29/16 07:51 03/29/16 11:45 Glucose (Fingerstick) 174mg/dL (70-99) 118mg/dL (70-99) 150mg/dL (70-99) Sodium Level 137mmol/L (136-145) Potassium Level 3.9mmol/L (3.5-5.1) Chloride Level 102mmol/L (98-107) Carbon Dioxide Level 28mmol/L (21-32) Anion Gap 7 (6-14) Blood Urea Nitrogen 85mg/dL (7-20) Creatinine 2.9mg/dL (0.6-1.0) Estimated GFR (Cockcroft-Gault) 16.0 Glucose Level 143mg/dL (70-99) Calcium Level 9.1mg/dL (8.5-10.1) Phosphorus Level 3.5mg/dL (2.6-4.7) Magnesium Level 2.3mg/dL (1.8-2.4) Albumin 2.4g/dL (3.4-5.0) Test 03/29/16 17:00 03/29/16 20:57 03/30/16 07:05 03/30/16 08:18 Glucose (Fingerstick) 140mg/dL (70-99) 223mg/dL (70-99) 93mg/dL (70-99) White Blood Count 5.4x10^3/uL (4.0-11.0) Red Blood Count 3.22x10^6/uL (3.50-5.40) Hemoglobin 10.1g/dL (12.0-15.5) Hematocrit 31.0% (36.0-47.0) Mean Corpuscular Volume 96fL (79-100) Mean Corpuscular Hemoglobin 32pg (25-35) Mean Corpuscular Hemoglobin Concent 33g/dL (31-37) Red Cell Distribution Width 15.1% (11.5-14.5) Platelet Count 136x10^3/uL (140-400) Neutrophils (%) (Auto) 67% (31-73) Lymphocytes (%) (Auto) 17% (24-48) Monocytes (%) (Auto) 14% (0-9) Eosinophils (%) (Auto) 1% (0-3) Basophils (%) (Auto) 1% (0-3) Neutrophils # (Auto) 3.6x10^3uL (1.8-7.7) Lymphocytes # (Auto) 0.9x10^3/uL (1.0-4.8) Monocytes # (Auto) 0.8x10^3/uL (0.0-1.1) Eosinophils # (Auto) 0.1x10^3/uL (0.0-0.7) Basophils # (Auto) 0.0x10^3/uL (0.0-0.2) Sodium Level 140mmol/L (136-145) Potassium Level 4.1mmol/L (3.5-5.1) Chloride Level 104mmol/L (98-107) Carbon Dioxide Level 28mmol/L (21-32) Anion Gap 8 (6-14) Blood Urea Nitrogen 76mg/dL (7-20) Creatinine 2.4mg/dL (0.6-1.0) Estimated GFR (Cockcroft-Gault) 20.0 Glucose Level 83mg/dL (70-99) Calcium Level 9.2mg/dL (8.5-10.1) Phosphorus Level 3.4mg/dL (2.6-4.7) Magnesium Level 2.4mg/dL (1.8-2.4) Albumin 2.4g/dL (3.4-5.0) Laboratory Tests Test 03/29/16 11:45 03/29/16 17:00 03/29/16 20:57 03/30/16 07:05 Glucose (Fingerstick) 150mg/dL (70-99) 140mg/dL (70-99) 223mg/dL (70-99) White Blood Count 5.4x10^3/uL (4.0-11.0) Red Blood Count 3.22x10^6/uL (3.50-5.40) Hemoglobin 10.1g/dL (12.0-15.5) Hematocrit 31.0% (36.0-47.0) Mean Corpuscular Volume 96fL (79-100) Mean Corpuscular Hemoglobin 32pg (25-35) Mean Corpuscular Hemoglobin Concent 33g/dL (31-37) Red Cell Distribution Width 15.1% (11.5-14.5) Platelet Count 136x10^3/uL (140-400) Neutrophils (%) (Auto) 67% (31-73) Lymphocytes (%) (Auto) 17% (24-48) Monocytes (%) (Auto) 14% (0-9) Eosinophils (%) (Auto) 1% (0-3) Basophils (%) (Auto) 1% (0-3) Neutrophils # (Auto) 3.6x10^3uL (1.8-7.7) Lymphocytes # (Auto) 0.9x10^3/uL (1.0-4.8) Monocytes # (Auto) 0.8x10^3/uL (0.0-1.1) Eosinophils # (Auto) 0.1x10^3/uL (0.0-0.7) Basophils # (Auto) 0.0x10^3/uL (0.0-0.2) Sodium Level 140mmol/L (136-145) Potassium Level 4.1mmol/L (3.5-5.1) Chloride Level 104mmol/L (98-107) Carbon Dioxide Level 28mmol/L (21-32) Anion Gap 8 (6-14) Blood Urea Nitrogen 76mg/dL (7-20) Creatinine 2.4mg/dL (0.6-1.0) Estimated GFR (Cockcroft-Gault) 20.0 Glucose Level 83mg/dL (70-99) Calcium Level 9.2mg/dL (8.5-10.1) Phosphorus Level 3.4mg/dL (2.6-4.7) Magnesium Level 2.4mg/dL (1.8-2.4) Albumin 2.4g/dL (3.4-5.0) Test 03/30/16 08:18 Glucose (Fingerstick) 93mg/dL (70-99) Microbiology 03/26/16 Blood Culture - Final, Complete 03/26/16 Blood Culture Result 1 (TYLER) - Final, Complete 03/26/16 Antimicrobic Susceptibility - Final, Complete 03/26/16 Urine Culture - Final, Complete 03/26/16 Urine Culture Result 1 (TYLER) - Final, Complete 03/26/16 Antimicrobic Susceptibility - Final, Complete Medications Current Medications Sodium Chloride 1,000 ml @ 1,000 mls/hr 1X ONCE IV Last administered on 03:50; Start 03/26/16 at 04:00; Stop 03/26/16 at 04:59; Status DC Levofloxacin/ Dextrose (LEVAQUIN 500mg PREMIX) 100 ml @ 100 mls/hr 1X ONCE IV Last administered on 03/26/16 04:34; Start 03/26/16 at 04:00; Stop 03/26/16 at 04:59; Status DC Ondansetron HCl 4 mg 4 mg PRN Q8HRS PRN IV NAUSEA/VOMITING; Start 03/26/16 at 04 :00; Stop 03/27/16 at 03:59; Status DC Sodium Chloride (Iv Sodium Chloride 0.9% 1000ml Bag) 1,000 ml @ 150 mls/hr Q6H40M IV Last administered on 03/26/16 04:34; Start 03/26/16 at 04:00; Stop 03/26/16 at 16:47; Status DC Acetaminophen (Tylenol) 650 mg PRN Q4HRS PRN PO FEVER; Start 03/26/16 at 04:00; Stop 03/27/16 at 03:59; Status DC Insulin Aspart (Novolog) 0-7 UNITS TIDWMEALS SQ Last administered on 03/26/16 12:20; Start 03/26/16 at 08:00; Stop 03/26/16 at 18:05; Status DC Dextrose 12.5 gm PRN Q15MIN PRN IV SEE COMMENTS; Start 03/26/16 at 04:15; Stop 03/26/16 at 18:05; Status DC Potassium Chloride 40 meq 40 meq 1X ONCE PO Last administered on 03/26/16 12: 18; Start 03/26/16 at 09:45; Stop 03/26/16 at 09:46; Status DC Magnesium Sulfate/ Dextrose (Magnesium Sulfate PREMIX 2GM) 50 ml @ 25 mls/hr PRN DAILY PRN IV for Mag < 1.7 on am labs; Start 03/26/16 at 11:15 Potassium Chloride (Klor-Con) 40 meq PRN Q6HRS PRN PO form K < 3.8 Last administered on 03/29/16 08:49; Start 03/26/16 at 11:15 Amiodarone HCl (Cordarone) 200 mg DAILY PO Last administered on 03/30/16 09:44 ; Start 03/26/16 at 13:00 Apixaban (Eliquis) 5 mg BID PO Last administered on 03/30/16 09:44; Start at 13:00 Carvedilol (Coreg) 12.5 mg BIDWMEALS PO Last administered on 03/30/16 09:42; Start 03/26/16 at 17:00 Aspirin (Ecotrin) 81 mg DAILYWBKFT PO Last administered on 03/30/16 09:40; Start 03/26/16 at 13:00 Simvastatin (Zocor) 10 mg QHS PO Last administered on 03/29/16 22:04; Start 03/26/16 at 21:00 Isosorbide Mononitrate (Imdur) 30 mg DAILY PO Last administered on 03/30/16 09: 43; Start 03/26/16 at 13:00 Hydralazine HCl (Apresoline) 25 mg TID PO Last administered on 03/26/16 14:50; Start 03/26/16 at 14:00; Stop 03/26/16 at 15:09; Status DC Allopurinol (Zyloprim) 100 mg DAILY PO Last administered on 03/27/16 07:49; Start 03/26/16 at 15:00; Stop 03/27/16 at 17:21; Status DC Amiodarone HCl (Cordarone) 200 mg DAILY PO ; Start 03/27/16 at 09:00; Status UNV Apixaban (Eliquis) 5 mg BID PO ; Start 03/26/16 at 21:00; Status UNV Aspirin (Ecotrin) 81 mg DAILY PO ; Start 03/27/16 at 09:00; Status UNV Carvedilol (Coreg) 12.5 mg BIDWMEALS PO ; Start 03/26/16 at 17:00; Status UNV Ferrous Sulfate (Feosol) 325 mg DAILY PO Last administered on 03/30/16 09:44; Start 03/26/16 at 17:00 Furosemide (Lasix) 80 mg DAILY PO ; Start 03/26/16 at 15:15; Stop 03/26/16 at 16: 47; Status DC Glipizide (Glucotrol) 5 mg BIDAC PO Last administered on 03/30/16 09:43; Start 03/26/16 at 16:30 Hydralazine HCl (Apresoline) 50 mg TID PO Last administered on 03/30/16 09:43; Start 03/26/16 at 21:00 Isosorbide Mononitrate (Imdur) 50 mg DAILY PO ; Start 03/27/16 at 09:00; Status UNV Levothyroxine Sodium (Synthroid) 75 mcg DAILY07 PO Last administered on 06:33; Start 03/27/16 at 07:00 Metolazone (Zaroxolyn) 2.5 mg DAILY PO ; Start 03/26/16 at 15:00; Stop 03/26/16 at 16:47; Status DC Nystatin (Nystop) 1 flower BID TP Last administered on 03/30/16 09:47; Start at 16:00 Simvastatin (Zocor) 10 mg DAILY PO ; Start 03/27/16 at 09:00; Status UNV Potassium Chloride (Klor-Con) 10 meq DAILYWBKFT PO Last administered on 09:41; Start 03/26/16 at 17:00 Linagliptin (Tradjenta) 5 mg DAILY PO Last administered on 03/30/16 09:44; Start 03/27/16 at 07:32 Info (Anti-Coagulation Monitoring By Pharmacy) 1 each PRN DAILY PRN MC SEE COMMENTS; Start 03/26/16 at 18:00 Insulin Aspart (Novolog) 0-7 UNITS TIDWMEALS SQ Last administered on 03/28/16 17:35; Start 03/27/16 at 08:00 Dextrose 12.5 gm 12.5 gm PRN Q15MIN PRN IV SEE COMMENTS; Start 03/26/16 at 18:00 Levofloxacin/ Dextrose 150 ml @ 100 mls/hr Q24H IV ; Start 03/26/16 at 18:15; Status UNV Levofloxacin/ Dextrose (LEVAQUIN 250mg PREMIX) 50 ml @ 50 mls/hr Q24H IV Last administered on 03/30/16 06:34; Start 03/27/16 at 06:00 Allopurinol (Zyloprim) 100 mg DAILY PO Last administered on 03/30/16 09:44; Start 03/28/16 at 09:00 Darbepoetin Pasha (Aranesp) 100 mcg WEEKLYHS SQ Last administered on 03/29/16 22 :04; Start 03/29/16 at 21:00 Active Scripts Active Carvedilol 12.5 Mg Tablet 12.5 Mg PO BIDWMEALS Eliquis (Apixaban) 5 Mg Tablet 5 Mg PO BID Reported Potassium Chloride 10 Meq Capsule.er 10 Meq PO DAILY Januvia (Sitagliptin Phosphate) 50 Mg Tablet 1 Tab PO DAILY Nystatin 15 Gm Powder 10,000 Flower TP BID Aspir 81 (Aspirin) 81 Mg Tablet.dr 1 Tab PO DAILY Glipizide 5 Mg Tablet 1 Tab PO BID Allopurinol 300 Mg Tablet 1 Tab PO DAILY Amiodarone Hcl 200 Mg Tablet 1 Tab PO DAILY Levothyroxine Sodium 75 Mcg Tablet 1 Tab PO DAILY Simvastatin 10 Mg Tablet 10 Mg PO DAILY Metolazone 2.5 Mg Tablet 2.5 Mg PO DAILY Isosorbide Mononitrate Er (Isosorbide Mononitrate) 30 Mg Tab.er.24h 50 Mg PO DAILY Ferrous Sulfate 325 Mg Tablet 1 Tab PO DAILY Hydralazine Hcl 50 Mg Tablet 1 Tab PO TID Lasix (Furosemide) 80 Mg Tablet 1 Tab PO DAILY Vitals/I & O Vital Sign - Last 24 Hours 03/29/16 03/29/16 03/29/16 03/29/16 11:00 14:45 15:00 17:47 Temp 97.9 97.9 97.9 97.9 Pulse 62 62 60 60 Resp 20 20 B/P 122/47 122/47 129/59 129/59 Pulse Ox 99 96 O2 Delivery Nasal Cannula Nasal Cannula O2 Flow Rate 2.0 2.0 03/29/16 03/29/16 03/29/16 03/29/16 19:00 20:00 22:06 23:00 Temp 99.1 98.6 99.1 98.6 Pulse 59 59 58 Resp 20 20 B/P 129/61 129/61 130/56 Pulse Ox 97 96 O2 Delivery Room Air Nasal Cannula Room Air O2 Flow Rate 3.0 03/30/16 03/30/16 03/30/16 03/30/16 03:00 03:00 07:00 08:00 Temp 97.9 97.8 98.1 97.9 97.8 98.1 Pulse 58 61 56 Resp 20 18 18 B/P 124/55 160/92 125/52 Pulse Ox 98 97 O2 Delivery Nasal Cannula Room Air Nasal Cannula Nasal Cannula O2 Flow Rate 2.0 2.0 3.0 03/30/16 03/30/16 03/30/16 03/30/16 09:42 09:43 09:43 09:44 Pulse 56 56 56 56 B/P 125/52 125/52 125/52 125/52 03/30/16 10:34 Temp 97.9 97.9 Pulse 53 Resp 18 B/P 89/50 Pulse Ox 98 O2 Delivery Nasal Cannula O2 Flow Rate 2.0 Intake and Output 03/29/16 03/29/16 03/30/16 15:00 23:00 07:00 Intake Total 200 ml 480 ml 700 ml Output Total 1525 ml 800 ml Balance -1325 ml 480 ml -100 ml AHNNY GOTTI III DO Mar 30, 2016 11:07
[2016-03-30] MEDS ORDERED: SODIUM CHL/ALOE VERA NASAL GEL 14.1GM TUBE. NS PRN (11:45)
[2016-03-30] MEDS ORDERED: SODIUM CHLORIDE 0.65% NASAL SPRAY 45ML BOTTLE. NS PRN (11:45)
[2016-03-30 15:00] VITALS: BP 127/56
[2016-03-30] MEDS: ANTI-COAG MONITOR BY PHARMACY. MC PRN (16:48)
[2016-03-30 19:11] VITALS: BP 144/61
[2016-03-30] MEDS: SIMVASTATIN 10 MG TABLET PO SCH (21:32)
[2016-03-30 23:45] VITALS: BP 145/60
[2016-03-31 02:34] VITALS: BP 138/52
[2016-03-31] MEDS: LEVOTHYROXINE 75 MCG TABLET PO SCH (05:55)
[2016-03-31 07:02] LABS: BASO % 1 % (0-3); EOS % 2 % (0-3); HEMATOCRIT 29.6 % (36.0-47.0); HEMOGLOBIN 9.7 g/dL (12.0-15.5); LYMPH % 19 % (24-48); MEAN CORPUSCULAR HEMOGLOBIN 32 pg (25-35); MEAN CORPUSCULAR HGB CONC 33 g/dL (31-37); MEAN CORPUSCULAR VOLUME 97 fL (79-100); MONO % 12 % (0-9); NEUT % 67 % (31-73); PLATELET COUNT 145 x10^3/uL (140-400); RED BLOOD COUNT 3.05 x10^6/uL (3.50-5.40); RED CELL DISTRIBUTION WIDTH 15.1 % (11.5-14.5); WHITE BLOOD COUNT 5.1 x10^3/uL (4.0-11.0)
[2016-03-31 07:14] LABS: ALBUMIN 2.3 g/dL (3.4-5.0); CALCIUM 9.2 mg/dL (8.5-10.1); CREATININE 2.4 mg/dL (0.6-1.0); PHOSPHORUS 3.5 mg/dL (2.6-4.7); POTASSIUM 4.3 mmol/L (3.5-5.1)
[2016-03-31 07:25] VITALS: BP 136/50
[2016-03-31] MEDS: INSULIN ASPART 300 UNITS/3 ML INSULN.PEN SQ SCH ×2 (08:00→12:00)
[2016-03-31] MEDS: NYSTATIN TOPICAL POWDER 15GM BOTTLE. TP SCH (09:00)
[2016-03-31] MEDS: POTASSIUM CHLORIDE 10 MEQ TABLET.ER. PO SCH (09:17)
[2016-03-31] MEDS: ASPIRIN ENTERIC COATED 81 MG TABLET.DR. PO SCH (09:17)
[2016-03-31] MEDS: ISOSORBIDE MONONITRATE ER 30 MG TAB.ER.24H PO SCH (09:18)
[2016-03-31] MEDS: GLIPIZIDE 5 MG TABLET PO SCH (09:18)
[2016-03-31] MEDS: HYDRALAZINE 50 MG TABLET PO SCH ×2 (09:18→14:13)
[2016-03-31] MEDS: APIXABAN 5 MG TABLET. PO SCH (09:18)
[2016-03-31] MEDS: FERROUS SULFATE 325 MG TABLET PO SCH (09:18)
[2016-03-31] MEDS: ALLOPURINOL 100 MG TABLET. PO SCH (09:18)
[2016-03-31] MEDS: LINAGLIPTIN 5 MG TABLET PO SCH (09:18)
[2016-03-31] MEDS: CARVEDILOL 12.5 MG TABLET PO SCH (09:19)
[2016-03-31] MEDS: AMIODARONE HCL 200 MG TABLET PO SCH (09:20)
[2016-03-31 10:57] VITALS: BP 125/46
--- NOTE | 2016-03-31 11:04 | PDOC ---
PROGRESS NOTES Chief Complaint Chief Complaint Sepsis UTI ASSESSMENT 1. Sepsis 2. UTI 3. 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 Anemia 5. Hyponatremia 6. Hypokalemia 7. DM 8. CAD 9. CHF - Lowest EF in the past at <20% on 02/05/2016. MPI on 03/11/2016 noted with EF>60% 10: Afib 11. OAC 12. Hypothyroidism 13. Protein malnutrition History of Present Illness History of Present Illness Patient up in chair Feels weak Catheter removed Pt has difficulty walking Pt wishes to be discharged to home health rather than rehab Pt returning to baseline Creatinine at home is 2.35 per pt. Creatinine is 2.4 today Possible discharge today if ok with Nephrology VSS DW RN Vitals Vitals Vital Signs Date Time Temp Pulse Resp B/P Pulse Ox O2 Delivery O2 Flow Rate FiO2 03/31/16 09:20 60 136/50 03/31/16 07:25 97.7 20 95 Nasal Cannula 3.0 97.7 Physical Exam General: Alert, Oriented X3, No acute distress Heart: Regular rate, No murmurs, Other (4/6 CHAPIN) Lungs: Clear, Other (no wheezes or crackles) Abdomen: Normal bowel sounds, Soft, No tenderness, Other (massively obese) Extremities: No clubbing, No cyanosis, Other (2+ bilateral pedal edema, obese) Skin: No rashes, No significant lesion Labs LABS Laboratory Tests Test 03/30/16 12:25 03/30/16 17:48 03/30/16 20:49 03/31/16 06:30 Glucose (Fingerstick) 172mg/dL (70-99) 160mg/dL (70-99) 176mg/dL (70-99) White Blood Count 5.1x10^3/uL (4.0-11.0) Red Blood Count 3.05x10^6/uL (3.50-5.40) Hemoglobin 9.7g/dL (12.0-15.5) Hematocrit 29.6% (36.0-47.0) Mean Corpuscular Volume 97fL (79-100) Mean Corpuscular Hemoglobin 32pg (25-35) Mean Corpuscular Hemoglobin Concent 33g/dL (31-37) Red Cell Distribution Width 15.1% (11.5-14.5) Platelet Count 145x10^3/uL (140-400) Neutrophils (%) (Auto) 67% (31-73) Lymphocytes (%) (Auto) 19% (24-48) Monocytes (%) (Auto) 12% (0-9) Eosinophils (%) (Auto) 2% (0-3) Basophils (%) (Auto) 1% (0-3) Neutrophils # (Auto) 3.4x10^3uL (1.8-7.7) Lymphocytes # (Auto) 1.0x10^3/uL (1.0-4.8) Monocytes # (Auto) 0.6x10^3/uL (0.0-1.1) Eosinophils # (Auto) 0.1x10^3/uL (0.0-0.7) Basophils # (Auto) 0.0x10^3/uL (0.0-0.2) Sodium Level 139mmol/L (136-145) Potassium Level 4.3mmol/L (3.5-5.1) Chloride Level 105mmol/L (98-107) Carbon Dioxide Level 28mmol/L (21-32) Anion Gap 6 (6-14) Blood Urea Nitrogen 73mg/dL (7-20) Creatinine 2.4mg/dL (0.6-1.0) Estimated GFR (Cockcroft-Gault) 20.0 Glucose Level 89mg/dL (70-99) Calcium Level 9.2mg/dL (8.5-10.1) Phosphorus Level 3.5mg/dL (2.6-4.7) Magnesium Level 2.6mg/dL (1.8-2.4) Albumin 2.3g/dL (3.4-5.0) Test 03/31/16 07:49 Glucose (Fingerstick) 74mg/dL (70-99) Review of Systems Review of Systems Complains of fatigue Complains of LE edema Assessment and Plan Assessmemt and Plan Problems Medical Problems: (1) Generalized weakness Status: Acute (2) Renal failure (ARF), acute on chronic Status: Acute (3) Renal failure, acute Status: Acute (4) Urinary tract infection Status: Acute (5) UTI symptoms Status: Acute ASSESSMENT: 1. Sepsis 2. UTI 3. 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 Anemia 5. Hyponatremia 6. Hypokalemia 7. DM 8. CAD 9. CHF - Lowest EF in the past at <20% on 02/05/2016. MPI on 03/11/2016 noted with EF>60% 10: Afib 11. OAC 12. Hypothyroidism 13. Protein malnutrition Plan: Continue Levaquin Continue home meds Fluids restriction due to CHF Recheck labs in AM Continue cardiac exercise physiologist PTOT D/C if ok with nephrology Appreciate the input of subspecialty Problems: Comment Review of Relevant I have reviewed the following items daniel (where applicable) has been applied. Labs Laboratory Tests Test 03/29/16 11:45 03/29/16 17:00 03/29/16 20:57 03/30/16 07:05 Glucose (Fingerstick) 150mg/dL (70-99) 140mg/dL (70-99) 223mg/dL (70-99) White Blood Count 5.4x10^3/uL (4.0-11.0) Red Blood Count 3.22x10^6/uL (3.50-5.40) Hemoglobin 10.1g/dL (12.0-15.5) Hematocrit 31.0% (36.0-47.0) Mean Corpuscular Volume 96fL (79-100) Mean Corpuscular Hemoglobin 32pg (25-35) Mean Corpuscular Hemoglobin Concent 33g/dL (31-37) Red Cell Distribution Width 15.1% (11.5-14.5) Platelet Count 136x10^3/uL (140-400) Neutrophils (%) (Auto) 67% (31-73) Lymphocytes (%) (Auto) 17% (24-48) Monocytes (%) (Auto) 14% (0-9) Eosinophils (%) (Auto) 1% (0-3) Basophils (%) (Auto) 1% (0-3) Neutrophils # (Auto) 3.6x10^3uL (1.8-7.7) Lymphocytes # (Auto) 0.9x10^3/uL (1.0-4.8) Monocytes # (Auto) 0.8x10^3/uL (0.0-1.1) Eosinophils # (Auto) 0.1x10^3/uL (0.0-0.7) Basophils # (Auto) 0.0x10^3/uL (0.0-0.2) Sodium Level 140mmol/L (136-145) Potassium Level 4.1mmol/L (3.5-5.1) Chloride Level 104mmol/L (98-107) Carbon Dioxide Level 28mmol/L (21-32) Anion Gap 8 (6-14) Blood Urea Nitrogen 76mg/dL (7-20) Creatinine 2.4mg/dL (0.6-1.0) Estimated GFR (Cockcroft-Gault) 20.0 Glucose Level 83mg/dL (70-99) Calcium Level 9.2mg/dL (8.5-10.1) Phosphorus Level 3.4mg/dL (2.6-4.7) Magnesium Level 2.4mg/dL (1.8-2.4) Albumin 2.4g/dL (3.4-5.0) Test 03/30/16 08:18 03/30/16 12:25 03/30/16 17:48 03/30/16 20:49 Glucose (Fingerstick) 93mg/dL (70-99) 172mg/dL (70-99) 160mg/dL (70-99) 176mg/dL (70-99) Test 03/31/16 06:30 03/31/16 07:49 White Blood Count 5.1x10^3/uL (4.0-11.0) Red Blood Count 3.05x10^6/uL (3.50-5.40) Hemoglobin 9.7g/dL (12.0-15.5) Hematocrit 29.6% (36.0-47.0) Mean Corpuscular Volume 97fL (79-100) Mean Corpuscular Hemoglobin 32pg (25-35) Mean Corpuscular Hemoglobin Concent 33g/dL (31-37) Red Cell Distribution Width 15.1% (11.5-14.5) Platelet Count 145x10^3/uL (140-400) Neutrophils (%) (Auto) 67% (31-73) Lymphocytes (%) (Auto) 19% (24-48) Monocytes (%) (Auto) 12% (0-9) Eosinophils (%) (Auto) 2% (0-3) Basophils (%) (Auto) 1% (0-3) Neutrophils # (Auto) 3.4x10^3uL (1.8-7.7) Lymphocytes # (Auto) 1.0x10^3/uL (1.0-4.8) Monocytes # (Auto) 0.6x10^3/uL (0.0-1.1) Eosinophils # (Auto) 0.1x10^3/uL (0.0-0.7) Basophils # (Auto) 0.0x10^3/uL (0.0-0.2) Sodium Level 139mmol/L (136-145) Potassium Level 4.3mmol/L (3.5-5.1) Chloride Level 105mmol/L (98-107) Carbon Dioxide Level 28mmol/L (21-32) Anion Gap 6 (6-14) Blood Urea Nitrogen 73mg/dL (7-20) Creatinine 2.4mg/dL (0.6-1.0) Estimated GFR (Cockcroft-Gault) 20.0 Glucose Level 89mg/dL (70-99) Calcium Level 9.2mg/dL (8.5-10.1) Phosphorus Level 3.5mg/dL (2.6-4.7) Magnesium Level 2.6mg/dL (1.8-2.4) Albumin 2.3g/dL (3.4-5.0) Glucose (Fingerstick) 74mg/dL (70-99) Laboratory Tests Test 03/30/16 12:25 03/30/16 17:48 03/30/16 20:49 03/31/16 06:30 Glucose (Fingerstick) 172mg/dL (70-99) 160mg/dL (70-99) 176mg/dL (70-99) White Blood Count 5.1x10^3/uL (4.0-11.0) Red Blood Count 3.05x10^6/uL (3.50-5.40) Hemoglobin 9.7g/dL (12.0-15.5) Hematocrit 29.6% (36.0-47.0) Mean Corpuscular Volume 97fL (79-100) Mean Corpuscular Hemoglobin 32pg (25-35) Mean Corpuscular Hemoglobin Concent 33g/dL (31-37) Red Cell Distribution Width 15.1% (11.5-14.5) Platelet Count 145x10^3/uL (140-400) Neutrophils (%) (Auto) 67% (31-73) Lymphocytes (%) (Auto) 19% (24-48) Monocytes (%) (Auto) 12% (0-9) Eosinophils (%) (Auto) 2% (0-3) Basophils (%) (Auto) 1% (0-3) Neutrophils # (Auto) 3.4x10^3uL (1.8-7.7) Lymphocytes # (Auto) 1.0x10^3/uL (1.0-4.8) Monocytes # (Auto) 0.6x10^3/uL (0.0-1.1) Eosinophils # (Auto) 0.1x10^3/uL (0.0-0.7) Basophils # (Auto) 0.0x10^3/uL (0.0-0.2) Sodium Level 139mmol/L (136-145) Potassium Level 4.3mmol/L (3.5-5.1) Chloride Level 105mmol/L (98-107) Carbon Dioxide Level 28mmol/L (21-32) Anion Gap 6 (6-14) Blood Urea Nitrogen 73mg/dL (7-20) Creatinine 2.4mg/dL (0.6-1.0) Estimated GFR (Cockcroft-Gault) 20.0 Glucose Level 89mg/dL (70-99) Calcium Level 9.2mg/dL (8.5-10.1) Phosphorus Level 3.5mg/dL (2.6-4.7) Magnesium Level 2.6mg/dL (1.8-2.4) Albumin 2.3g/dL (3.4-5.0) Test 03/31/16 07:49 Glucose (Fingerstick) 74mg/dL (70-99) Microbiology 03/26/16 Blood Culture - Final, Complete 03/26/16 Blood Culture Result 1 (TYLER) - Final, Complete 03/26/16 Antimicrobic Susceptibility - Final, Complete 03/26/16 Urine Culture - Final, Complete 03/26/16 Urine Culture Result 1 (TYLER) - Final, Complete 03/26/16 Antimicrobic Susceptibility - Final, Complete Medications Current Medications Sodium Chloride 1,000 ml @ 1,000 mls/hr 1X ONCE IV Last administered on 03:50; Start 03/26/16 at 04:00; Stop 03/26/16 at 04:59; Status DC Levofloxacin/ Dextrose (LEVAQUIN 500mg PREMIX) 100 ml @ 100 mls/hr 1X ONCE IV Last administered on 03/26/16 04:34; Start 03/26/16 at 04:00; Stop 03/26/16 at 04:59; Status DC Ondansetron HCl 4 mg 4 mg PRN Q8HRS PRN IV NAUSEA/VOMITING; Start 03/26/16 at 04 :00; Stop 03/27/16 at 03:59; Status DC Sodium Chloride (Iv Sodium Chloride 0.9% 1000ml Bag) 1,000 ml @ 150 mls/hr Q6H40M IV Last administered on 03/26/16 04:34; Start 03/26/16 at 04:00; Stop 03/26/16 at 16:47; Status DC Acetaminophen (Tylenol) 650 mg PRN Q4HRS PRN PO FEVER; Start 03/26/16 at 04:00; Stop 03/27/16 at 03:59; Status DC Insulin Aspart (Novolog) 0-7 UNITS TIDWMEALS SQ Last administered on 03/26/16 12:20; Start 03/26/16 at 08:00; Stop 03/26/16 at 18:05; Status DC Dextrose 12.5 gm PRN Q15MIN PRN IV SEE COMMENTS; Start 03/26/16 at 04:15; Stop 03/26/16 at 18:05; Status DC Potassium Chloride 40 meq 40 meq 1X ONCE PO Last administered on 03/26/16 12: 18; Start 03/26/16 at 09:45; Stop 03/26/16 at 09:46; Status DC Magnesium Sulfate/ Dextrose (Magnesium Sulfate PREMIX 2GM) 50 ml @ 25 mls/hr PRN DAILY PRN IV for Mag < 1.7 on am labs; Start 03/26/16 at 11:15 Potassium Chloride (Klor-Con) 40 meq PRN Q6HRS PRN PO form K < 3.8 Last administered on 03/29/16 08:49; Start 03/26/16 at 11:15 Amiodarone HCl (Cordarone) 200 mg DAILY PO Last administered on 03/31/16 09:20 ; Start 03/26/16 at 13:00 Apixaban (Eliquis) 5 mg BID PO Last administered on 03/31/16 09:18; Start at 13:00 Carvedilol (Coreg) 12.5 mg BIDWMEALS PO Last administered on 03/31/16 09:19; Start 03/26/16 at 17:00 Aspirin (Ecotrin) 81 mg DAILYWBKFT PO Last administered on 03/31/16 09:17; Start 03/26/16 at 13:00 Simvastatin (Zocor) 10 mg QHS PO Last administered on 03/30/16 21:32; Start 03/26/16 at 21:00 Isosorbide Mononitrate (Imdur) 30 mg DAILY PO Last administered on 03/31/16 09: 18; Start 03/26/16 at 13:00 Hydralazine HCl (Apresoline) 25 mg TID PO Last administered on 03/26/16 14:50; Start 03/26/16 at 14:00; Stop 03/26/16 at 15:09; Status DC Allopurinol (Zyloprim) 100 mg DAILY PO Last administered on 03/27/16 07:49; Start 03/26/16 at 15:00; Stop 03/27/16 at 17:21; Status DC Amiodarone HCl (Cordarone) 200 mg DAILY PO ; Start 03/27/16 at 09:00; Status UNV Apixaban (Eliquis) 5 mg BID PO ; Start 03/26/16 at 21:00; Status UNV Aspirin (Ecotrin) 81 mg DAILY PO ; Start 03/27/16 at 09:00; Status UNV Carvedilol (Coreg) 12.5 mg BIDWMEALS PO ; Start 03/26/16 at 17:00; Status UNV Ferrous Sulfate (Feosol) 325 mg DAILY PO Last administered on 03/31/16 09:18; Start 03/26/16 at 17:00 Furosemide (Lasix) 80 mg DAILY PO ; Start 03/26/16 at 15:15; Stop 03/26/16 at 16: 47; Status DC Glipizide (Glucotrol) 5 mg BIDAC PO Last administered on 03/31/16 09:18; Start 03/26/16 at 16:30 Hydralazine HCl (Apresoline) 50 mg TID PO Last administered on 03/31/16 09:18; Start 03/26/16 at 21:00 Isosorbide Mononitrate (Imdur) 50 mg DAILY PO ; Start 03/27/16 at 09:00; Status UNV Levothyroxine Sodium (Synthroid) 75 mcg DAILY07 PO Last administered on 05:55; Start 03/27/16 at 07:00 Metolazone (Zaroxolyn) 2.5 mg DAILY PO ; Start 03/26/16 at 15:00; Stop 03/26/16 at 16:47; Status DC Nystatin (Nystop) 1 flower BID TP Last administered on 03/30/16 21:34; Start at 16:00 Simvastatin (Zocor) 10 mg DAILY PO ; Start 03/27/16 at 09:00; Status UNV Potassium Chloride (Klor-Con) 10 meq DAILYWBKFT PO Last administered on 09:17; Start 03/26/16 at 17:00 Linagliptin (Tradjenta) 5 mg DAILY PO Last administered on 03/31/16 09:18; Start 03/27/16 at 07:32 Info (Anti-Coagulation Monitoring By Pharmacy) 1 each PRN DAILY PRN MC SEE COMMENTS Last administered on 03/30/16 16:48; Start 03/26/16 at 18:00 Insulin Aspart (Novolog) 0-7 UNITS TIDWMEALS SQ Last administered on 03/28/16 17:35; Start 03/27/16 at 08:00 Dextrose 12.5 gm 12.5 gm PRN Q15MIN PRN IV SEE COMMENTS; Start 03/26/16 at 18:00 Levofloxacin/ Dextrose 150 ml @ 100 mls/hr Q24H IV ; Start 03/26/16 at 18:15; Status UNV Levofloxacin/ Dextrose (LEVAQUIN 250mg PREMIX) 50 ml @ 50 mls/hr Q24H IV Last administered on 03/31/16 05:54; Start 03/27/16 at 06:00 Allopurinol (Zyloprim) 100 mg DAILY PO Last administered on 03/31/16 09:18; Start 03/28/16 at 09:00 Darbepoetin Pasha (Aranesp) 100 mcg WEEKLYHS SQ Last administered on 03/29/16 22 :04; Start 03/29/16 at 21:00 Sodium Chloride ([place] Saline Nasal) 1 flower DAILY PRN NS NASAL CONGESTION; Start 03/30/16 at 11:45 Sodium Chloride (Saline Mist Nasal) 1 flower PRN Q1HR PRN NS NASAL CONGESTION; Start 03/30/16 at 11:45 Active Scripts Active Carvedilol 12.5 Mg Tablet 12.5 Mg PO BIDWMEALS Eliquis (Apixaban) 5 Mg Tablet 5 Mg PO BID Reported Potassium Chloride 10 Meq Capsule.er 10 Meq PO DAILY Januvia (Sitagliptin Phosphate) 50 Mg Tablet 1 Tab PO DAILY Nystatin 15 Gm Powder 10,000 Flower TP BID Aspir 81 (Aspirin) 81 Mg Tablet.dr 1 Tab PO DAILY Glipizide 5 Mg Tablet 1 Tab PO BID Allopurinol 300 Mg Tablet 1 Tab PO DAILY Amiodarone Hcl 200 Mg Tablet 1 Tab PO DAILY Levothyroxine Sodium 75 Mcg Tablet 1 Tab PO DAILY Simvastatin 10 Mg Tablet 10 Mg PO DAILY Metolazone 2.5 Mg Tablet 2.5 Mg PO DAILY Isosorbide Mononitrate Er (Isosorbide Mononitrate) 30 Mg Tab.er.24h 50 Mg PO DAILY Ferrous Sulfate 325 Mg Tablet 1 Tab PO DAILY Hydralazine Hcl 50 Mg Tablet 1 Tab PO TID Lasix (Furosemide) 80 Mg Tablet 1 Tab PO DAILY Vitals/I & O Vital Sign - Last 24 Hours 03/30/16 03/30/16 03/30/16 03/30/16 14:00 15:00 17:56 19:11 Temp 97.9 97.5 97.9 97.5 Pulse 87 58 58 66 Resp 18 B/P 110/42 127/56 127/56 144/61 Pulse Ox 98 98 O2 Delivery Nasal Cannula Nasal Cannula O2 Flow Rate 2.0 3.0 03/30/16 03/30/16 03/30/16 03/31/16 20:00 21:33 23:45 02:34 Temp 97.6 98.6 97.6 98.6 Pulse 66 56 61 Resp 20 22 B/P 144/61 145/60 138/52 Pulse Ox 99 96 O2 Delivery Nasal Cannula Nasal Cannula Nasal Cannula O2 Flow Rate 3.0 3.0 3.0 03/31/16 03/31/16 03/31/16 03/31/16 07:25 09:18 09:18 09:19 Temp 97.7 97.7 Pulse 55 55 55 60 Resp 20 B/P 136/50 136/50 136/50 136/50 Pulse Ox 95 O2 Delivery Nasal Cannula O2 Flow Rate 3.0 03/31/16 09:20 Pulse 60 B/P 136/50 Intake and Output 03/30/16 03/30/16 03/31/16 15:00 23:00 07:00 Intake Total 1000 ml 690 ml Output Total 950 ml 750 ml Balance 50 ml -60 ml HANNY GOTTI III DO Mar 31, 2016 11:04
[2016-03-31] MEDS: ANTI-COAG MONITOR BY PHARMACY. MC PRN (14:16)
--- NOTE | 2016-03-31 14:32 | PDOC ---
SUBJECTIVE ROS CKD IV doing better, D/c Plans noted CVS: no Orthopnea, no CP RESP: no SOB, no ROCHA GI: no Nausea, no Vomiting : no Dysuria, no Urgency OBJECTIVE Vital Signs Vital Signs Date Time Temp Pulse Resp B/P Pulse Ox O2 Delivery O2 Flow Rate FiO2 03/31/16 14:13 56 125/46 03/31/16 10:57 97.5 20 97 Nasal Cannula 3.0 97.5 I & 0 Intake and Output 03/31/16 07:00 Intake Total 1690 ml Output Total 1700 ml Balance -10 ml Intake Oral 1690 ml Output Urine Total 1700 ml # Voids 1 # Bowel Movements 1 PHYSICAL EXAM Physical Exam General Appearance: Awake Alert Oriented x 3 In no Distress Eyes: VIsion Unchanged Conjunctiva Normal EN: No EN Drainage Mucous Memb. moist Neck: no JVD no JVP Supple no Thyromegaly; Short thick neck CVS: S1 S2 no audible Murmur No Gallop No Rub no pitting Edema (+ Pre-Tibial fat) - distal HS Resp: no Rales no Rhonchi no Acc. Muscle use; Distal BS GI: BAS +ve NO Bruit Non Tender Non Distended : min CVA tenderness; ? Suprapubic Tenderness Assessment & Plan ARF: (? ATN/ AIN/ Pyelonephritis) vs VMN due to diuretics - Creat is stable today. Current FLuid and E-lyte status does not necessitate emergent need for Dialysis. Will re-evaluate for Dialysis in am if here CKD IV back to baseline - Creat of ~ 2.5 on last check; Previous CT Scan in 2015 shows some atrophy of Kidneys and thinning. DESMOND cannot be ruled out ? UTI with Hematuria (E.Coli) - Abx per Dr Lagos; No stones were noted to my eye on previous Ct (none reported) Recc Pyelo - may need URO eval as OP HTN: Current BP meds reviewed. See orders for changes. HypoALbuminemia - watch trend. suspect low A/G ratio due to ch infection. - may need PEPs checked as OP Anemia of CKD - EPO as ordered Discussed Plan of Care and prognosis etc. at length with pt - F/up as OP in 4-6 weeks COMMENT/RELEVANT DATA Meds Current Medications Medications (Trade) Dose Ordered Sig/Dejon Start Time Stop Time Status Last Admin Dose Admin Acetaminophen (Tylenol) 650 mg PRN Q4HRS PRN 03/26/16 04:00 03/27/16 03:59 DC Allopurinol (Zyloprim) 100 mg DAILY 03/28/16 09:00 03/31/16 09:18 100 MG Amiodarone HCl (Cordarone) 200 mg DAILY 03/27/16 09:00 UNV Apixaban (Eliquis) 5 mg BID 03/26/16 21:00 UNV Aspirin (Ecotrin) 81 mg DAILY 03/27/16 09:00 UNV Carvedilol (Coreg) 12.5 mg BIDWMEALS 03/26/16 17:00 UNV Darbepoetin Pasha (Aranesp) 100 mcg WEEKLYHS 03/29/16 21:00 03/29/16 22:04 100 MCG Dextrose 12.5 gm PRN Q15MIN PRN 03/26/16 04:15 03/26/16 18:05 DC Dextrose 12.5 gm 12.5 gm PRN Q15MIN PRN 03/26/16 18:00 Ferrous Sulfate (Feosol) 325 mg DAILY 03/26/16 17:00 03/31/16 09:18 325 MG Furosemide (Lasix) 80 mg DAILY 03/26/16 15:15 03/26/16 16:47 DC Glipizide (Glucotrol) 5 mg BIDAC 03/26/16 16:30 03/31/16 09:18 5 MG Hydralazine HCl (Apresoline) 50 mg TID 03/26/16 21:00 03/31/16 14:13 50 MG Info (Anti-Coagulation Monitoring By Pharmacy) 1 each PRN DAILY PRN 03/26/16 18:00 03/31/16 14:16 1 EACH Insulin Aspart (Novolog) 0-7 UNITS TIDWMEALS 03/27/16 08:00 03/28/16 17:35 3 UNITS Isosorbide Mononitrate (Imdur) 50 mg DAILY 03/27/16 09:00 UNV Levofloxacin (Levaquin) 250 mg DAILY06 04/01/16 06:00 Levofloxacin/ Dextrose (LEVAQUIN 250mg PREMIX) 50 ml @ 50 mls/hr Q24H 03/27/16 06:00 03/31/16 14:19 DC 03/31/16 05:54 50 MLS/HR Levofloxacin/ Dextrose (LEVAQUIN 500mg PREMIX) 100 ml @ 100 mls/hr 1X ONCE 03/26/16 04:00 03/26/16 04:59 DC 03/26/16 04:34 100 MLS/HR Levothyroxine Sodium (Synthroid) 75 mcg DAILY07 03/27/16 07:00 03/31/16 05:55 75 MCG Linagliptin (Tradjenta) 5 mg DAILY 03/27/16 07:32 03/31/16 09:18 5 MG Magnesium Sulfate/ Dextrose (Magnesium Sulfate PREMIX 2GM) 50 ml @ 25 mls/hr PRN DAILY PRN 03/26/16 11:15 Metolazone (Zaroxolyn) 2.5 mg DAILY 03/26/16 15:00 03/26/16 16:47 DC Nystatin (Nystop) 1 flavia BID 03/26/16 16:00 03/30/16 21:34 1 FLAVIA Ondansetron HCl 4 mg 4 mg PRN Q8HRS PRN 03/26/16 04:00 03/27/16 03:59 DC Potassium Chloride 40 meq 40 meq 1X ONCE 03/26/16 09:45 03/26/16 09:46 DC 03/26/16 12:18 40 MEQ Potassium Chloride (Klor-Con) 10 meq DAILYWBKFT 03/26/16 17:00 03/31/16 09:17 10 MEQ Simvastatin (Zocor) 10 mg DAILY 03/27/16 09:00 UNV Sodium Chloride ([place] Saline Nasal) 1 flavia DAILY PRN 03/30/16 11:45 Sodium Chloride (Iv Sodium Chloride 0.9% 1000ml Bag) 1,000 ml @ 150 mls/hr Q6H40M 03/26/16 04:00 03/26/16 16:47 DC 03/26/16 04:34 150 MLS/HR Sodium Chloride (Saline Mist Nasal) 1 flavia PRN Q1HR PRN 03/30/16 11:45 Lab Laboratory Tests Test 03/30/16 17:48 03/30/16 20:49 03/31/16 06:30 03/31/16 07:49 Glucose (Fingerstick) 160mg/dL (70-99) 176mg/dL (70-99) 74mg/dL (70-99) White Blood Count 5.1x10^3/uL (4.0-11.0) Red Blood Count 3.05x10^6/uL (3.50-5.40) Hemoglobin 9.7g/dL (12.0-15.5) Hematocrit 29.6% (36.0-47.0) Mean Corpuscular Volume 97fL (79-100) Mean Corpuscular Hemoglobin 32pg (25-35) Mean Corpuscular Hemoglobin Concent 33g/dL (31-37) Red Cell Distribution Width 15.1% (11.5-14.5) Platelet Count 145x10^3/uL (140-400) Neutrophils (%) (Auto) 67% (31-73) Lymphocytes (%) (Auto) 19% (24-48) Monocytes (%) (Auto) 12% (0-9) Eosinophils (%) (Auto) 2% (0-3) Basophils (%) (Auto) 1% (0-3) Neutrophils # (Auto) 3.4x10^3uL (1.8-7.7) Lymphocytes # (Auto) 1.0x10^3/uL (1.0-4.8) Monocytes # (Auto) 0.6x10^3/uL (0.0-1.1) Eosinophils # (Auto) 0.1x10^3/uL (0.0-0.7) Basophils # (Auto) 0.0x10^3/uL (0.0-0.2) Sodium Level 139mmol/L (136-145) Potassium Level 4.3mmol/L (3.5-5.1) Chloride Level 105mmol/L (98-107) Carbon Dioxide Level 28mmol/L (21-32) Anion Gap 6 (6-14) Blood Urea Nitrogen 73mg/dL (7-20) Creatinine 2.4mg/dL (0.6-1.0) Estimated GFR (Cockcroft-Gault) 20.0 Glucose Level 89mg/dL (70-99) Calcium Level 9.2mg/dL (8.5-10.1) Phosphorus Level 3.5mg/dL (2.6-4.7) Magnesium Level 2.6mg/dL (1.8-2.4) Albumin 2.3g/dL (3.4-5.0) Test 03/31/16 11:53 Glucose (Fingerstick) 132mg/dL (70-99) KARAN BARAJAS MD Mar 31, 2016 14:32
[2016-03-31 14:40] VITALS: BP 126/61
[2016-03-31] MEDS ORDERED: LEVO250T25 PO (17:16)
[2016-04-01] MEDS ORDERED: LEVOFLOXACIN 250 MG TABLET. PO SCH (06:00)
== END 2016-03-31 17:45 | disposition home health service (06) | DRG 871 ==
LOC: ER 03:01 → 6 SOUTH 04:00
PROVIDERS: ADMIT Internal Medicine; ATTEND Internal Medicine
DX: A41.9 Sepsis, unspecified organism (principal); N17.0 Acute kidney failure with tubular necrosis; E44.0 Moderate protein-calorie malnutrition; E87.1 Hypo-osmolality and hyponatremia; I50.42 Chronic combined systolic (congestive) and diastolic (congestive) heart failure; I13.0 Hypertensive heart and chronic kidney disease with heart failure and stage 1 through stage 4 chronic kidney disease, or unspecified chronic kidney disease; N12 Tubulo-interstitial nephritis, not specified as acute or chronic; N18.4 Chronic kidney disease, stage 4 (severe); Z68.43 Body mass index [BMI] 50.0-59.9, adult; D63.1 Anemia in chronic kidney disease; E03.9 Hypothyroidism, unspecified; E11.22 Type 2 diabetes mellitus with diabetic chronic kidney disease; E11.42 Type 2 diabetes mellitus with diabetic polyneuropathy; E66.01 Morbid (severe) obesity due to excess calories; E78.5 Hyperlipidemia, unspecified; E87.6 Hypokalemia; G47.33 Obstructive sleep apnea (adult) (pediatric); K57.90 Diverticulosis of intestine, part unspecified, without perforation or abscess without bleeding; M54.5 Low back pain; F41.9 Anxiety disorder, unspecified; Z60.2 Problems related to living alone; I25.10 Atherosclerotic heart disease of native coronary artery without angina pectoris; I25.5 Ischemic cardiomyopathy; I48.91 Unspecified atrial fibrillation; Z79.4 Long term (current) use of insulin; I25.2 Old myocardial infarction; Z82.49 Family history of ischemic heart disease and other diseases of the circulatory system; Z87.440 Personal history of urinary (tract) infections; Z88.1 Allergy status to other antibiotic agents; Z88.0 Allergy status to penicillin; Z90.49 Acquired absence of other specified parts of digestive tract; Z79.82 Long term (current) use of aspirin; I44.7 Left bundle-branch block, unspecified
CPT/HCPCS: 36415; 51702; 71010; 80053; 80069; 81001; 82947; 83605; 83735; 83880; 84132; 84443; 84484; 85007; 85018; 85027; 85610; 87040; 87086; 87186; 87205; 93005; 93306; 96361; 96374; J0881; J1815; J1956; J7030; 97110; 97116; 97530; 97535; 99285-25